=== PATIENT | male | born 1965 | race Caucasian/White ===

== ENCOUNTER → 2016-12-21 | Outpatient (CLI) | payer OTHER | LOC: M SLEEP 20:00 | PROVIDERS: ATTEND Internal Medicine Pulmonary Disease | DX: G47.33 Obstructive sleep apnea (adult) (pediatric) (principal) ==

== ENCOUNTER → 2016-12-27 | Outpatient (CLI) | payer OTHER ==
[2016-12-27 16:07] LABS: ALBUMIN 3.9 GM/DL (3.2-5.2); ALBUMIN/GLOBULIN RATIO 1.22 (1.00-1.93); ALKALINE PHOSPHATASE 81 U/L (45-117); ALT/SGPT 43 U/L (12-78); ANION GAP 7 MEQ/L (8-16); AST/SGOT 25 U/L (15-37); BILIRUBIN,TOTAL 0.6 MG/DL (0.2-1.0); BLOOD UREA NITROGEN 13 MG/DL (7-18); CALCIUM LEVEL 8.8 MG/DL (8.5-10.1); CARBON DIOXIDE LEVEL 29 MEQ/L (21-32); CHLORIDE LEVEL 104 MEQ/L (98-107); CHOLESTEROL LEVEL 171 MG/DL (<200); CREATININE FOR GFR 0.97 MG/DL (0.70-1.30); GLOMERULAR FILTRATION RATE > 60.0 (>56); GLUCOSE, FASTING 172 MG/DL (70-105); POTASSIUM SERUM 4.3 MEQ/L (3.5-5.1); SODIUM LEVEL 140 MEQ/L (136-145); TOTAL PROTEIN 7.1 GM/DL (6.4-8.2); TRIGLYCERIDES LEVEL 160 MG/DL (<150)
== END ==
LOC: M LAB 14:57
PROVIDERS: ATTEND Emergency Medicine
DX: R73.01 Impaired fasting glucose (principal); E55.9 Vitamin D deficiency, unspecified

== ENCOUNTER 2017-01-01 02:21 | Emergency (ER) | payer OTHER ==
[~2017-01-01] VITALS: Ht 170.2 cm; Wt 88.5 kg
[2017-01-01 02:24] VITALS: BP 153/98
[2017-01-01] MEDS ORDERED: AMPH5CAP PO (02:35)
[2017-01-01] MEDS ORDERED: VITA400T15 PO (02:35)
[2017-01-01] MEDS ORDERED: ZYRT10CA PO (02:35)
[2017-01-01] MEDS ORDERED: ALEV220C2 PO (02:35)
[2017-01-01] MEDS ORDERED: GABA-282 PO (02:35)
[2017-01-01] MEDS ORDERED: MULT1TAB18 PO (02:35)
[2017-01-01] MEDS ORDERED: METF500T PO (02:35)
== END 2017-01-01 04:54 | disposition left against medical advice (07) ==
LOC: M ED 03:43
DX: R68.89 Other general symptoms and signs (principal); Z53.29 Procedure and treatment not carried out because of patient's decision for other reasons

== ENCOUNTER 2017-06-02 06:52 | Emergency (ER) | payer OTHER ==
[~2017-06-02] VITALS: Ht 170.2 cm; Wt 81.8 kg
[~2017-06-02 06:52] MED LIST: ALEV220C2 PO; AMPH5CAP PO; GABA-282 PO; METF500T13 PO; MULT1TAB18 PO; VITA400T15 PO; ZYRT10CA PO
[2017-06-02] MEDS ORDERED: OXYC15TA76 PO (07:04)
[2017-06-02] MEDS ORDERED: MORPHINE 2 MG/ML 1ML SYRINGE IV ONE (07:30)
[2017-06-02] MEDS ORDERED: ONDANSETRON 4MG/2ML VIAL (J2405) IV ONE (07:30)
[2017-06-02] MEDS ORDERED: NS 1,000 ML IV ONE (07:30)
[2017-06-02 07:48] LABS: BASO % 0.5 % (0.0-1.0); EOS # 0.1 K/mm3 (0.0-0.50); EOS % 1.4 % (0.0-3.0); LARGE UNSTAINED CELL # 0.2 K/mm3 (0.0-0.4); LARGE UNSTAINED CELL % 1.7 % (0.0-4.0); LYMPH # 2.7 K/mm3 (1.5-4.5); MEAN CORPUSCULAR HEMOGLOBIN 30.3 pg (27.0-33.0); MEAN CORPUSCULAR HGB CONC 34.3 g/dl (32.0-36.5); MEAN CORPUSCULAR VOLUME 88.3 fl (80.0-96.0); MONO # 0.7 K/mm3 (0.0-0.8); MONO % 7.8 % (0.0-5.0); NEUTROPHILS # 5.6 K/mm3 (1.8-7.7); NEUTROPHILS % 60.6 % (36.0-66.0); PLATELET COUNT, AUTOMATED 211 k/mm3 (150-450); RED CELL DISTRIBUTION WIDTH 13.4 % (11.5-14.5); WHITE BLOOD COUNT 9.2 K/mm3 (4.0-10.0)
[2017-06-02 08:07] LABS: ALBUMIN 3.7 GM/DL (3.2-5.2); ALKALINE PHOSPHATASE 62 U/L (45-117); ALT/SGPT 33 U/L (12-78); ANION GAP 6 MEQ/L (8-16); AST/SGOT 35 U/L (15-37); BILIRUBIN,DIRECT 0.3 MG/DL (0.0-0.2); BILIRUBIN,TOTAL 1.4 MG/DL (0.2-1.0); BLOOD UREA NITROGEN 9 MG/DL (7-18); CALCIUM LEVEL 8.3 MG/DL (8.5-10.1); CARBON DIOXIDE LEVEL 31 MEQ/L (21-32); CHLORIDE LEVEL 102 MEQ/L (98-107); CREATININE FOR GFR 0.83 MG/DL (0.70-1.30); GLOMERULAR FILTRATION RATE > 60.0 (>56); GLUCOSE, FASTING 115 MG/DL (70-105); POTASSIUM SERUM 3.5 MEQ/L (3.5-5.1); SODIUM LEVEL 139 MEQ/L (136-145); TOTAL PROTEIN 7.8 GM/DL (6.4-8.2)
[2017-06-02] MEDS ORDERED: ISOVUE-370 76% 100ML VIAL (Q9967) As Ordered ONE (08:19)
--- NOTE | 2017-06-02 08:37 | REP ---
Clinical: S I R S . Comparison: 09/02/2016 . Findings: The mediastinum and cardiac silhouette are stable and within normal limits for portable technique. The lung wright are clear without acute consolidation, effusion, or pneumothorax. Skeletal structures are intact. Impression: No acute cardiopulmonary process appreciated. Signed by Roque Stuart MD 06/02/2017 08:29 A
--- NOTE | 2017-06-02 08:55 | REP ---
Clinical: Recent cervical spine surgery with difficulty swallowing. Technique: Axial contrast enhanced images from the the mid skull to the thoracic inlet with coronal and sagittal re-formations using 100 ml Isovue 370 intravenous contrast material. Findings: Moderate retropharyngeal/prespinal soft tissue swelling and fullness is appreciated extending from the C2-C4 level which may represent postoperative changes. No discrete abscess is identified. Parapharyngeal fat space demonstrates postoperative inflammatory changes and swelling along the left side of the neck to the C7-T1 level including small amounts of residual subcutaneous gas. The airway remains patent and midline. No mass or midline shift noted. The vascular structures are intact and symmetric. The osseous structures are within normal limits. Visualized sinuses and mastoid air cells are clear. Lymph nodes are relatively symmetric and without obvious adenopathy. Impression: Moderate presumed postoperative changes in the retropharyngeal and right parapharyngeal region extending from approximately C2-C5 as described above including prespinal soft tissue fullness without discrete abscess and subcutaneous/soft tissue infiltration along the left side extending to the level of the thoracic inlet at C7-T1. Signed by Roque Stuart MD 06/02/2017 08:47 A
[2017-06-02 10:35] VITALS: BP 149/86
== END 2017-06-02 10:48 | disposition short-term general hospital (02) ==
LOC: M ED 06:52
DX: R13.10 Dysphagia, unspecified (principal)
CPT/HCPCS: 36415; 70491; 71010; 80048; 80076; 81001; 83605; 85025; 87040; 87086; 93041; 94760; 96374; 96375; 99285; J2405; Q9967

== ENCOUNTER → 2017-11-28 | Outpatient (CLI) | payer OTHER ==
[2017-11-28 09:23] LABS: ESTIMATED AVERAGE GLUCOSE 123 MG/DL (60-110); HEMOGLOBIN A1c 5.9 %
[2017-11-28 09:37] LABS: ALBUMIN 4.2 GM/DL (3.2-5.2); ALBUMIN/GLOBULIN RATIO 1.31 (1.00-1.93); ALKALINE PHOSPHATASE 81 U/L (45-117); ALT/SGPT 28 U/L (12-78); ANION GAP 5 MEQ/L (8-16); AST/SGOT 17 U/L (7-37); BILIRUBIN,TOTAL 0.9 MG/DL (0.2-1.0); BLOOD UREA NITROGEN 13 MG/DL (7-18); CALCIUM LEVEL 9.1 MG/DL (8.5-10.1); CARBON DIOXIDE LEVEL 29 MEQ/L (21-32); CHLORIDE LEVEL 107 MEQ/L (98-107); CHOLESTEROL LEVEL 166 MG/DL (<200); CHOLESTEROL RISK RATIO 2.766 (<5); CREATININE FOR GFR 0.87 MG/DL (0.70-1.30); GLOMERULAR FILTRATION RATE > 60.0 (>56); GLUCOSE, FASTING 101 MG/DL (70-100); HDL CHOLESTEROL 60 MG/DL (>40); LDL CHOLESTEROL 84.8 MG/DL (<100); NON-HDL-C 106 MG/DL; POTASSIUM SERUM 4.2 MEQ/L (3.5-5.1); SODIUM LEVEL 141 MEQ/L (136-145); TOTAL PROTEIN 7.4 GM/DL (6.4-8.2); TRIGLYCERIDES LEVEL 106 MG/DL (<150)
[2017-11-28 09:57] LABS: TOTAL 25(OH) VITAMIN D 30.9 NG/ML (30.0-100.0)
== END ==
LOC: M LAB 08:38
DX: R73.01 Impaired fasting glucose (principal); E55.9 Vitamin D deficiency, unspecified
CPT/HCPCS: 80053

== ENCOUNTER 2017-12-18 11:50 | Emergency (ER) | payer OTHER ==
[2017-12-18] MEDS ORDERED: ISOVUE-370 76% 100ML VIAL (Q9967) As Ordered (14:11)
[2017-12-18] MEDS: LIDOCAINE VISCOUS 2% SOLN 15ML UDC PO (15:38)
== END 2017-12-18 16:51 | disposition home or self-care (01) ==
LOC: M ED 11:50
DX: R13.10 Dysphagia, unspecified (principal); E11.9 Type 2 diabetes mellitus without complications; Z98.890 Other specified postprocedural states; Z79.84 Long term (current) use of oral hypoglycemic drugs; Z79.899 Other long term (current) drug therapy
CPT/HCPCS: Q9967

== ENCOUNTER 2018-01-14 21:21 | Emergency (ER) | payer OTHER ==
[2018-01-14 22:26] LABS: BASO # 0.1 10^3/uL (0.0-0.2); BASO % 0.8 % (0.0-1.0); EOS # 0.2 10^3/uL (0.0-0.50); EOS % 2.5 % (0.0-3.0); HEMOGLOBIN 15.5 g/dl (13.5-17.5); IMMATURE GRANULOCYTE % 0.3 % (0-3.0); LYMPH % 28.4 % (24.0-44.0); MEAN CORPUSCULAR HGB CONC 34.4 g/dl (32.0-36.5); MEAN CORPUSCULAR VOLUME 84.3 fl (80.0-96.0); MONO # 0.7 10^3/uL (0.0-0.8); MONO % 10.1 % (0.0-5.0); NEUTROPHILS # 4.1 10^3/uL (1.8-7.7); NEUTROPHILS % 57.9 % (36.0-66.0); PLATELET COUNT, AUTOMATED 253 10^3/uL (150-450); RED BLOOD COUNT 5.34 10^6/uL (4.30-6.10); RED CELL DISTRIBUTION WIDTH 14.6 % (11.5-14.5); WHITE BLOOD COUNT 7.2 10^3/uL (4.0-10.0)
[2018-01-14 22:30] LABS: INR 1.12; PROTHROMBIN TIME 14.6 SECONDS (12.4-14.5)
[2018-01-14 22:31] LABS: PARTIAL THROMBOPLASTIN TIME 30.4 SECONDS (26.8-37.9)
[2018-01-14 22:33] LABS: ANION GAP 7 MEQ/L (8-16); BLOOD UREA NITROGEN 14 MG/DL (7-18); CALCIUM LEVEL 9.1 MG/DL (8.5-10.1); CARBON DIOXIDE LEVEL 27 MEQ/L (21-32); CHLORIDE LEVEL 106 MEQ/L (98-107); CK-MB VALUE MASS 1.2 NG/ML (<3.6); CPK CREATINE PHOSPHOKINASE 135 U/L (39-308); GLOMERULAR FILTRATION RATE > 60.0 (>56); GLUCOSE, FASTING 132 MG/DL (70-100); MB/CK RELATIVE INDEX 0.88 (< OR =4); POTASSIUM SERUM 3.9 MEQ/L (3.5-5.1); SODIUM LEVEL 140 MEQ/L (136-145); TROPONIN I < 0.02 NG/ML (< 0.10)
[2018-01-14] MEDS: ASPIRIN 325 MG TAB PO (22:48)
[2018-01-14] MEDS ORDERED: ISOVUE-370 76% 100ML VIAL (Q9967) As Ordered (23:33)
[2018-01-15 01:52] LABS: CK-MB VALUE MASS 1.1 NG/ML (<3.6); CPK CREATINE PHOSPHOKINASE 113 U/L (39-308); MB/CK RELATIVE INDEX 0.97 (< OR =4); TROPONIN I < 0.02 NG/ML (< 0.10)
[2018-01-15] MEDS: GI COCKTAIL 50ML BTL(HYOSCYAMINE/MAALOX/LIDOCAINE VISCOUS)(1:3:1) PO (02:27)
== END 2018-01-15 02:28 | disposition home or self-care (01) ==
LOC: M ED 01-15 02:28
DX: M96.1 Postlaminectomy syndrome, not elsewhere classified (principal); R07.0 Pain in throat; I45.19 Other right bundle-branch block; E11.9 Type 2 diabetes mellitus without complications; G89.29 Other chronic pain; M54.2 Cervicalgia; Z79.899 Other long term (current) drug therapy
CPT/HCPCS: Q9967

== ENCOUNTER 2018-07-18 12:56 | Emergency (ER) | payer OTHER ==
[2018-07-18 13:30] LABS: BEDSIDE GLUCOSE 101 MG/DL (70-105)
[2018-07-18 13:51] LABS: BASO # 0.1 10^3/uL (0.0-0.2); BASO % 0.8 % (0.0-1.0); EOS # 0.2 10^3/uL (0.0-0.50); EOS % 3.2 % (0.0-3.0); HEMATOCRIT 38.7 % (42.0-52.0); IMMATURE GRANULOCYTE % 0.2 % (0-3.0); LYMPH # 1.8 10^3/uL (1.5-4.5); LYMPH % 30.7 % (24.0-44.0); MEAN CORPUSCULAR HEMOGLOBIN 25.4 pg (27.0-33.0); MONO # 0.6 10^3/uL (0.0-0.8); MONO % 10.7 % (0.0-5.0); NEUTROPHILS # 3.3 10^3/uL (1.8-7.7); NEUTROPHILS % 54.4 % (36.0-66.0); PLATELET COUNT, AUTOMATED 313 10^3/uL (150-450); RED BLOOD COUNT 4.72 10^6/uL (4.30-6.10); RED CELL DISTRIBUTION WIDTH 14.9 % (11.5-14.5)
[2018-07-18 14:23] LABS: ALBUMIN 3.7 GM/DL (3.2-5.2); ALBUMIN/GLOBULIN RATIO 1.06 (1.00-1.93); ALKALINE PHOSPHATASE 86 U/L (45-117); ALT/SGPT 22 U/L (12-78); ANION GAP 8 MEQ/L (8-16); AST/SGOT 21 U/L (7-37); BILIRUBIN,DIRECT 0.2 MG/DL (0.0-0.2); BILIRUBIN,TOTAL 0.7 MG/DL (0.2-1.0); BLOOD UREA NITROGEN 14 MG/DL (7-18); CALCIUM LEVEL 8.8 MG/DL (8.5-10.1); CARBON DIOXIDE LEVEL 29 MEQ/L (21-32); CHLORIDE LEVEL 107 MEQ/L (98-107); CK-MB VALUE MASS < 1.0 NG/ML (<3.6); CPK CREATINE PHOSPHOKINASE 103 U/L (39-308); CREATININE FOR GFR 0.85 MG/DL (0.70-1.30); FREE T4 1.27 NG/DL (0.76-1.46); GLOMERULAR FILTRATION RATE > 60.0 (>56); GLUCOSE, FASTING 92 MG/DL (70-100); MB/CK RELATIVE INDEX 0.97 (< OR =4); SODIUM LEVEL 144 MEQ/L (136-145); THYROID STIMULATING HORMONE 0.737 uIU/ML (0.358-3.740); TOTAL PROTEIN 7.2 GM/DL (6.4-8.2); TROPONIN I < 0.02 NG/ML (< 0.10)
[2018-07-18] MEDS: NS 1,000 ML IV (14:41)
[2018-07-18] MEDS ORDERED: ISOVUE-370 76% 100ML VIAL (Q9967) As Ordered (14:55)
[2018-07-18 20:25] LABS: CK-MB VALUE MASS < 1.0 NG/ML (<3.6); CPK CREATINE PHOSPHOKINASE 78 U/L (39-308); MB/CK RELATIVE INDEX 1.28 (< OR =4); TROPONIN I < 0.02 NG/ML (< 0.10)
== END 2018-07-18 21:08 | disposition home or self-care (01) ==
LOC: M ED 12:56
DX: R00.2 Palpitations (principal); R07.89 Other chest pain; M54.12 Radiculopathy, cervical region; R20.2 Paresthesia of skin; I45.19 Other right bundle-branch block; E11.9 Type 2 diabetes mellitus without complications; G47.30 Sleep apnea, unspecified; M48.02 Spinal stenosis, cervical region; Z72.0 Tobacco use; Z79.899 Other long term (current) drug therapy
CPT/HCPCS: Q9967

== ENCOUNTER 2018-07-20 12:52 | Emergency (ER) | payer OTHER ==
[2018-07-20] MEDS: ASPIRIN 81 MG CHEW TABLET PO (13:30)
[2018-07-20 13:35] LABS: BASO # 0.1 10^3/uL (0.0-0.2); BASO % 0.8 % (0.0-1.0); EOS # 0.2 10^3/uL (0.0-0.50); EOS % 2.5 % (0.0-3.0); HEMATOCRIT 38.5 % (42.0-52.0); HEMOGLOBIN 12.2 g/dl (13.5-17.5); IMMATURE GRANULOCYTE % 0.3 % (0-3.0); LYMPH # 1.8 10^3/uL (1.5-4.5); LYMPH % 28.3 % (24.0-44.0); MEAN CORPUSCULAR HEMOGLOBIN 25.5 pg (27.0-33.0); MEAN CORPUSCULAR HGB CONC 31.7 g/dl (32.0-36.5); MEAN CORPUSCULAR VOLUME 80.4 fl (80.0-96.0); MONO # 0.5 10^3/uL (0.0-0.8); MONO % 8.1 % (0.0-5.0); NEUTROPHILS # 3.8 10^3/uL (1.8-7.7); PLATELET COUNT, AUTOMATED 329 10^3/uL (150-450); RED BLOOD COUNT 4.79 10^6/uL (4.30-6.10); RED CELL DISTRIBUTION WIDTH 14.7 % (11.5-14.5); WHITE BLOOD COUNT 6.4 10^3/uL (4.0-10.0)
[2018-07-20 13:50] LABS: PROTHROMBIN TIME 15.4 SECONDS (12.1-14.4)
[2018-07-20 13:51] LABS: PARTIAL THROMBOPLASTIN TIME 29.5 SECONDS (25.4-37.6)
[2018-07-20] MEDS: NITROGLYCERIN 2% OINT 1 GM *U/D* PKT TOP (14:00)
[2018-07-20 14:09] LABS: ALBUMIN 3.7 GM/DL (3.2-5.2); ALBUMIN/GLOBULIN RATIO 0.97 (1.00-1.93); ALKALINE PHOSPHATASE 87 U/L (45-117); ALT/SGPT 23 U/L (12-78); ANION GAP 8 MEQ/L (8-16); AST/SGOT 20 U/L (7-37); BILIRUBIN,DIRECT 0.2 MG/DL (0.0-0.2); BILIRUBIN,TOTAL 0.7 MG/DL (0.2-1.0); BLOOD UREA NITROGEN 14 MG/DL (7-18); CALCIUM LEVEL 8.9 MG/DL (8.5-10.1); CARBON DIOXIDE LEVEL 28 MEQ/L (21-32); CHLORIDE LEVEL 106 MEQ/L (98-107); CREATININE FOR GFR 0.94 MG/DL (0.70-1.30); GLOMERULAR FILTRATION RATE > 60.0 (>56); GLUCOSE, FASTING 112 MG/DL (70-100); POTASSIUM SERUM 3.8 MEQ/L (3.5-5.1); SODIUM LEVEL 142 MEQ/L (136-145); TOTAL PROTEIN 7.5 GM/DL (6.4-8.2)
[2018-07-20 14:10] LABS: CPK CREATINE PHOSPHOKINASE 107 U/L (39-308); FREE T4 1.15 NG/DL (0.76-1.46); MB/CK RELATIVE INDEX 0.93 (< OR =4); THYROID STIMULATING HORMONE 0.923 uIU/ML (0.358-3.740); TROPONIN I < 0.02 NG/ML (< 0.10)
[2018-07-20 18:40] LABS: CK-MB VALUE MASS < 1.0 NG/ML (<3.6); CPK CREATINE PHOSPHOKINASE 97 U/L (39-308); MB/CK RELATIVE INDEX 1.03 (< OR =4); TROPONIN I < 0.02 NG/ML (< 0.10)
== END 2018-07-20 19:33 | disposition home or self-care (01) ==
LOC: M ED 12:52
DX: R07.89 Other chest pain (principal); R00.1 Bradycardia, unspecified; R11.0 Nausea; E11.9 Type 2 diabetes mellitus without complications; F17.200 Nicotine dependence, unspecified, uncomplicated; Z79.899 Other long term (current) drug therapy; Z79.84 Long term (current) use of oral hypoglycemic drugs
CPT/HCPCS: 71046

== ENCOUNTER 2018-12-12 11:43 | Emergency (ER) | payer OTHER ==
[~2018-12-12] VITALS: Ht 170.2 cm; Wt 79.5 kg
[~2018-12-12 11:43] MED LIST changes: +AMPHET/DEXTR; +CENTCHW4 PO; -GABA-282 PO; +GABA-843 PO; +OXYC15TA76 PO
[2018-12-12] MEDS ORDERED: AMPHET/DEXTR (11:49)
[2018-12-12] MEDS ORDERED: KETOROLAC TROMETHAMINE 10 MG TAB PO ONE (12:30)
[2018-12-12] MEDS ORDERED: ADACEL/BOOSTRIX VACCINE (DIPHTH/PERTUSS/ACELL/TETANUS)0.5ML SYR (90715) IM ONE (12:30)
--- NOTE | 2018-12-12 12:56 | REP ---
CT Head without contrast HISTORY: Fall COMPARISON: None There is no intraparenchymal hemorrhage, acute infarct, mass or midline shift. The ventricular system is normal in appearance. There is no extra cerebral collection. There is no fracture. The visualized sinuses are clear. IMPRESSION: There is no intracranial lesion. Electronically Signed by Chino Yanez MD 12/12/2018 12:47 P
--- NOTE | 2018-12-12 13:01 | REP ---
CT cervical spine without contrast HISTORY: Fall COMPARISON: 09/26/2011 There is no acute fracture or subluxation. The patient is status post C3-C6 anterior spinal fusion. Metal hardware and bone graft material are present. Disc bulges with associated osteophyte formation are present at the C2-3 and C6-7 levels. Posterior osteophytes are present at the C3-4 through C5-6 levels. There is minimal narrowing of the spinal canal. Uncinate process and/or facet hypertrophy are present at the C2-3 through C6-7 levels. These findings produce minimal to mild narrowing of the neural foramina. The C6-7 intervertebral disc is decreased in height consistent with disc degeneration. IMPRESSION: 1. There is no acute fracture or subluxation. 2. The patient is status post C3-C6 anterior spinal fusion. There is anatomic alignment. 3. There is cervical spondylosis at the C2-3 through C6-7 levels. Electronically Signed by Chino Yanez MD 12/12/2018 12:52 P
[2018-12-12] MEDS ORDERED: CYCL10TA PO (13:17)
[2018-12-12] MEDS ORDERED: KETO10TAB PO (13:17)
[2018-12-12 13:23] VITALS: BP 142/66
== END 2018-12-12 13:30 | disposition home or self-care (01) ==
LOC: M ED 11:43
DX: S00.81XA Abrasion of other part of head, initial encounter (principal); W10.8XXA Fall (on) (from) other stairs and steps, initial encounter; Y92.018 Other place in single-family (private) house as the place of occurrence of the external cause; Y93.01 Activity, walking, marching and hiking; Y99.8 Other external cause status; E11.9 Type 2 diabetes mellitus without complications; Z87.891 Personal history of nicotine dependence; M54.2 Cervicalgia; Z79.899 Other long term (current) drug therapy; Z79.84 Long term (current) use of oral hypoglycemic drugs

== ENCOUNTER → 2019-03-17 | Outpatient (CLI) | payer OTHER ==
[~2019-03-17] MED LIST changes: +CYCL10TA PO; +KETO10TAB PO
[2019-03-17 10:03] LABS: ALBUMIN 3.7 GM/DL (3.2-5.2); ALT/SGPT 26 U/L (12-78); BILIRUBIN,TOTAL 0.7 MG/DL (0.2-1.0); BLOOD UREA NITROGEN 12 MG/DL (7-18); CALCIUM LEVEL 8.9 MG/DL (8.5-10.1); CARBON DIOXIDE LEVEL 30 MEQ/L (21-32); CHLORIDE LEVEL 107 MEQ/L (98-107); CHOLESTEROL LEVEL 163 MG/DL (<200); CREATININE FOR GFR 0.99 MG/DL (0.70-1.30); GLOMERULAR FILTRATION RATE > 60.0 (>56); GLUCOSE, FASTING 95 MG/DL (70-100); HDL CHOLESTEROL 50 MG/DL (>40); LDL CHOLESTEROL 85 MG/DL (<100); NON-HDL-C 113 MG/DL; POTASSIUM SERUM 4.3 MEQ/L (3.5-5.1); SODIUM LEVEL 140 MEQ/L (136-145); TOTAL PROTEIN 7.3 GM/DL (6.4-8.2); TRIGLYCERIDES LEVEL 138 MG/DL (<150)
== END ==
LOC: M LAB 08:32
PROVIDERS: ATTEND Physician Assistant
DX: R73.01 Impaired fasting glucose (principal)

== ENCOUNTER → 2019-10-05 | Outpatient (CLI) | payer OTHER ==
[~2019-10-05] MED LIST changes: +AMPH1CAP9 PO; -AMPH5CAP PO
[2019-10-05 08:43] LABS: BASO # 0.1 10^3/uL (0.0-0.2); BASO % 0.9 % (0.0-1.0); EOS # 0.2 10^3/uL (0.0-0.5); EOS % 3.6 % (0.0-3.0); HEMATOCRIT 44.9 % (42.0-52.0); HEMOGLOBIN 14.5 g/dl (13.5-17.5); LYMPH # 1.8 10^3/uL (1.5-5.0); LYMPH % 32.1 % (24.0-44.0); MEAN CORPUSCULAR HEMOGLOBIN 28.8 pg (27.0-33.0); MEAN CORPUSCULAR HGB CONC 32.3 g/dl (32.0-36.5); MEAN CORPUSCULAR VOLUME 89.3 fl (80.0-96.0); MONO # 0.6 10^3/uL (0.0-0.8); MONO % 10.3 % (0.0-5.0); NEUTROPHILS # 2.9 10^3/uL (1.5-8.5); NEUTROPHILS % 52.6 % (36.0-66.0); PLATELET COUNT, AUTOMATED 219 10^3/uL (150-450); RED BLOOD COUNT 5.03 10^6/uL (4.30-6.10); WHITE BLOOD COUNT 5.6 10^3/uL (4.0-10.0)
[2019-10-05 09:02] LABS: HEMOGLOBIN A1c 6.4 %
[2019-10-05 11:14] LABS: ALBUMIN 3.5 GM/DL (3.2-5.2); ALT/SGPT 35 U/L (12-78); BILIRUBIN,TOTAL 0.9 MG/DL (0.2-1.0); BLOOD UREA NITROGEN 13 MG/DL (7-18); CALCIUM LEVEL 8.9 MG/DL (8.5-10.1); CARBON DIOXIDE LEVEL 27 MEQ/L (21-32); CHLORIDE LEVEL 106 MEQ/L (98-107); CHOLESTEROL LEVEL 160 MG/DL (<200); CHOLESTEROL RISK RATIO 3.555 (<5); CREATININE FOR GFR 0.84 MG/DL (0.70-1.30); GLOMERULAR FILTRATION RATE > 60.0 (>56); GLUCOSE, FASTING 108 MG/DL (70-100); HDL CHOLESTEROL 45 MG/DL (>40); LDL CHOLESTEROL 79 MG/DL (<100); NON-HDL-C 115 MG/DL; POTASSIUM SERUM 4.2 MEQ/L (3.5-5.1); SODIUM LEVEL 142 MEQ/L (136-145); TOTAL PROTEIN 6.9 GM/DL (6.4-8.2); TRIGLYCERIDES LEVEL 182 MG/DL (<150)
[2019-10-05 11:31] LABS: MALB URINE SIEMENS 12.3 MG/L
[2019-10-05 11:52] LABS: TOTAL 25(OH) VITAMIN D 22.1 NG/ML (30.0-100.0)
[2019-10-05 15:26] LABS: MAU/CREAT RATIO 7.1 MCG/MG (0.0-30.0)
== END ==
LOC: M LAB 07:54
PROVIDERS: ATTEND Physician Assistant
DX: R73.01 Impaired fasting glucose (principal); E55.9 Vitamin D deficiency, unspecified; G47.33 Obstructive sleep apnea (adult) (pediatric)

== ENCOUNTER 2020-01-14 17:53 | Emergency (ER) | payer OTHER ==
[~2020-01-14] VITALS: Ht 172.7 cm; Wt 81.8 kg
[~2020-01-14 17:53] MED LIST changes: +CYCL-707 PO; -CYCL10TA PO; +OXYC-1 PO; -OXYC15TA76 PO
[2020-01-14] MEDS ORDERED: ONDANSETRON 4MG/2ML VIAL IV ONE (18:15)
[2020-01-14 18:30] LABS: BASO % 0.5 % (0.0-1.0); EOS # 0.1 10^3/uL (0.0-0.5); EOS % 1.1 % (0.0-3.0); HEMATOCRIT 44.3 % (42.0-52.0); HEMOGLOBIN 15.1 g/dl (13.5-17.5); LYMPH # 1.1 10^3/uL (1.5-5.0); LYMPH % 13.7 % (24.0-44.0); MEAN CORPUSCULAR HEMOGLOBIN 30.5 pg (27.0-33.0); MEAN CORPUSCULAR HGB CONC 34.1 g/dl (32.0-36.5); MEAN CORPUSCULAR VOLUME 89.5 fl (80.0-96.0); MONO # 0.5 10^3/uL (0.0-0.8); MONO % 5.9 % (0.0-5.0); NEUTROPHILS # 6.5 10^3/uL (1.5-8.5); NEUTROPHILS % 78.3 % (36.0-66.0); PLATELET COUNT, AUTOMATED 226 10^3/uL (150-450); RED BLOOD COUNT 4.95 10^6/uL (4.30-6.10); WHITE BLOOD COUNT 8.3 10^3/uL (4.0-10.0)
[2020-01-14] MEDS ORDERED: MORPHINE 4 MG/ML 1ML VIAL/SYRINGE (J2270) IV ONE (18:30)
[2020-01-14 18:44] LABS: INR 1.14; PROTHROMBIN TIME 14.4 SECONDS (11.8-14.0)
[2020-01-14 18:45] LABS: PARTIAL THROMBOPLASTIN TIME 29.7 SECONDS (25.0-38.4)
[2020-01-14] MEDS ORDERED: GI COCKTAIL 50ML BTL(HYOSCYAMINE/MAALOX/LIDOCAINE VISCOUS)(1:3:1) PO ONE (18:45)
[2020-01-14] MEDS ORDERED: NITROGLYCERIN 0.4 MG SUBL TABLET SL PRN (18:45)
[2020-01-14 18:48] LABS: BLOOD UREA NITROGEN 10 MG/DL (7-18); C REACTIVE PROTEIN QUANTITATIV < 0.30 MG/DL (0.00-0.30); CALCIUM LEVEL 9.1 MG/DL (8.5-10.1); CARBON DIOXIDE LEVEL 30 MEQ/L (21-32); CHLORIDE LEVEL 105 MEQ/L (98-107); CK-MB VALUE MASS 3.7 NG/ML (<3.6); CPK CREATINE PHOSPHOKINASE 104 U/L (39-308); CREATININE FOR GFR 0.86 MG/DL (0.70-1.30); GLOMERULAR FILTRATION RATE > 60.0 (>56); GLUCOSE, FASTING 183 MG/DL (70-100); MB/CK RELATIVE INDEX 3.56 (< OR =4); POTASSIUM SERUM 4.1 MEQ/L (3.5-5.1); SODIUM LEVEL 139 MEQ/L (136-145); TROPONIN I 0.37 NG/ML (< 0.10)
[2020-01-14 18:53] LABS: ERYTHROCYTE SEDIMENTATION RATE 4 mm/hr (0-20)
[2020-01-14] MEDS ORDERED: PANT500T PO (18:57)
[2020-01-14] MEDS ORDERED: OMEP-218 PO (18:57)
[2020-01-14] MEDS ORDERED: ISOVUE-370 76% 100ML VIAL As Ordered ONE (18:59)
--- NOTE | 2020-01-14 19:25 | REPVR ---
PROCEDURE INFORMATION: Exam: CT Angiography Chest With Contrast Exam date and time: 01/14/2020 7:02 PM Age: 54 years old Clinical indication: Sternal or substernal pain; Additional info: Sternal sharp chest pain constant, SOB TECHNIQUE: Imaging protocol: Computed tomographic angiography of the chest with intravenous contrast. 3D rendering: MIP and/or 3D reconstructed images were created by the technologist. Radiation optimization: All CT scans at this facility use at least one of these dose optimization techniques: automated exposure control; mA and/or kV adjustment per patient size (includes targeted exams where dose is matched to clinical indication); or iterative reconstruction. Contrast material: ISOVUE 370; Contrast volume: 75 ml; Contrast route: IV; COMPARISON: CT ANGIO CHEST 07/18/2018 2:54 PM FINDINGS: Pulmonary arteries: No pulmonary arterial emboli. Aorta: No thoracic aortic aneurysm or dissection. Lungs: There is minor dependent atelectasis. No consolidation. No focal ground-glass opacities. No nodule or mass. Pleural space: Unremarkable. No pneumothorax. No pleural effusion. Heart: There are coronary artery calcifications. Lymph nodes: Unremarkable. No enlarged lymph nodes. Bones/joints: There are degenerative changes of the thoracic spine. No fracture. No focal osseous lesion. Soft tissues: Unremarkable. IMPRESSION: 1. No pulmonary arterial emboli. 2. No acute findings. Electronically signed by: Khoa Hernandez On 01/14/2020 19:25:19 PM
[2020-01-14] MEDS ORDERED: HEPARIN DRIP 25,000 UNITS in IV 1 EA IV SCH (19:29)
[2020-01-14] MEDS ORDERED: HEPARIN SOD (PORCINE) 5000UNITS/ML VIAL (J1644 PER 1000UNITS) IV ONE (19:30)
[2020-01-14] MEDS ORDERED: METOPROLOL TART 50 MG TAB PO ONE (19:30)
[2020-01-14] MEDS ORDERED: MORPHINE 4 MG/ML 1ML VIAL/SYRINGE (J2270) IV PRN (19:30)
[2020-01-14] MEDS ORDERED: CLOPIDOGREL 300 MG TAB (PLAVIX) PO ONE (20:00)
[2020-01-14 20:11] VITALS: BP 177/78
[2020-01-14 20:30] VITALS: BP 139/63
[2020-01-14 21:41] LABS: CK-MB VALUE MASS 7.6 NG/ML (<3.6); MB/CK RELATIVE INDEX 5.85 (< OR =4); TROPONIN I 0.99 NG/ML (< 0.10)
--- NOTE | 2020-01-15 00:58 | ECGEPIP ---
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
--- NOTE | 2020-01-15 08:19 | REP ---
HISTORY: Chest pain. The technique utilized in obtaining the radiograph has magnified the cardiac silhouette and accentuated the interstitial markings. The superior mediastinal structures are midline. The cardiac silhouette is unremarkable in size, shape, and position. The diaphragmatic surfaces of the lungs are regular, and the costophrenic angles are clear. The pulmonary wright are clear. The imaged osseous structures are intact. IMPRESSION: There is no acute cardiopulmonary disease. Electronically Signed by Vance White DO 01/17/2020 07:48 A
== END 2020-01-14 21:02 | disposition short-term general hospital (02) ==
LOC: EDBD 17:53 → M ED 17:53
DX: I21.4 Non-ST elevation (NSTEMI) myocardial infarction (principal); E11.9 Type 2 diabetes mellitus without complications; Z79.84 Long term (current) use of oral hypoglycemic drugs
CPT/HCPCS: 71045; 71275; 80048; 82550; 82553; 84484; 85025; 85610; 85652; 85730; 86140; 93005; 93041; 94760; 96374; 96375; 96376; 99285; G0463; J1644; J2270; J2405; Q9967

== ENCOUNTER 2020-01-27 16:39 | Emergency (ER) | payer OTHER ==
[~2020-01-27] VITALS: Ht 172.7 cm; Wt 87.4 kg
[~2020-01-27 16:39] MED LIST changes: +OMEP-218 PO; +PANT500T PO
[2020-01-27] MEDS ORDERED: FERR325T16 PO (16:55)
[2020-01-27] MEDS ORDERED: NORC1TAB7 PO (16:55)
[2020-01-27] MEDS ORDERED: POTA10CA32 PO (16:55)
[2020-01-27] MEDS ORDERED: METF500T13 PO (16:55)
[2020-01-27] MEDS ORDERED: AMLO25TA PO (16:55)
[2020-01-27] MEDS ORDERED: PLAV1TAB2 PO (16:55)
[2020-01-27] MEDS ORDERED: METO1TAB32 PO (16:55)
[2020-01-27] MEDS ORDERED: ASPI81TA26 PO (16:55)
[2020-01-27] MEDS ORDERED: ATOR80TA59 PO (16:55)
[2020-01-27] MEDS ORDERED: FURO20TA2 PO (16:55)
[2020-01-27] MEDS ORDERED: MM S100C PO (16:55)
[2020-01-27 17:52] LABS: HEMATOCRIT 30.6 % (42.0-52.0); MEAN CORPUSCULAR HEMOGLOBIN 30.4 pg (27.0-33.0); MEAN CORPUSCULAR HGB CONC 32.7 g/dl (32.0-36.5); PLATELET COUNT, AUTOMATED 403 10^3/uL (150-450); RED BLOOD COUNT 3.29 10^6/uL (4.30-6.10); WHITE BLOOD COUNT 9.8 10^3/uL (4.0-10.0)
[2020-01-27 18:06] LABS: INR 1.34; PROTHROMBIN TIME 16.3 SECONDS (11.8-14.0)
[2020-01-27 18:07] LABS: PARTIAL THROMBOPLASTIN TIME 30.9 SECONDS (25.0-38.4)
[2020-01-27 18:18] LABS: ALBUMIN 3.3 GM/DL (3.2-5.2); BILIRUBIN,DIRECT 0.4 MG/DL (0.0-0.2); BILIRUBIN,TOTAL 1.1 MG/DL (0.2-1.0); THYROID STIMULATING HORMONE 0.98 uIU/ML (0.358-3.740); TOTAL PROTEIN 6.6 GM/DL (6.4-8.2)
[2020-01-27] MEDS ORDERED: ISOVUE-370 76% 100ML VIAL As Ordered ONE (18:29)
[2020-01-27] MEDS ORDERED: FUROSEMIDE 40MG/4ML VIAL (J1940) IV ONE (19:30)
[2020-01-27] MEDS ORDERED: KETOROLAC 30 MG/ML 1ML VIAL IV ONE (19:45)
--- NOTE | 2020-01-27 20:02 | REPVR ---
PROCEDURE INFORMATION: Exam: CT Angiography Chest With Contrast Exam date and time: 01/27/2020 6:44 PM Age: 54 years old Clinical indication: Chest pain; Additional info: Chest pain, post op TECHNIQUE: Imaging protocol: Computed tomographic angiography of the chest with intravenous contrast. 3D rendering: MIP and/or 3D reconstructed images were created by the technologist. Radiation optimization: All CT scans at this facility use at least one of these dose optimization techniques: automated exposure control; mA and/or kV adjustment per patient size (includes targeted exams where dose is matched to clinical indication); or iterative reconstruction. Contrast material: ISOVUE 370; Contrast volume: 75 ml; Contrast route: IV; COMPARISON: CT ANGIO CHEST 01/14/2020 7:03 PM FINDINGS: Pulmonary arteries: No evidence of pulmonary embolus. Aorta: There is mild irregularity along the anterior aspect of the proximal aortic arch. Lungs: Mild scattered linear atelectasis or scarring. No consolidation to indicate pneumonia. Pleural space: Small to moderate bilateral pleural effusions with adjacent compressive atelectasis. Heart: Previous coronary artery bypass grafting. Mediastinum: There are soft tissue infiltrative changes involving the anterior mediastinum. Lymph nodes: Unremarkable. No enlarged lymph nodes. Bones/joints: Recent median sternotomy. There are degenerative changes involving the spine. Minimally displaced fracture involving the right 1st rib. Soft tissues: Unremarkable. IMPRESSION: 1. Mild irregularity along the anterior aspect of the proximal aortic arch, new from prior examination. Finding may be secondary to small amount of mural thrombus or intimal injury, follow-up recommended. 2. Minimally displaced fracture involving the right 1st rib. 3. Small to moderate bilateral pleural effusions with adjacent compressive atelectasis. 4. Infiltrative changes involving the anterior mediastinal fat planes, at least in part on a postoperative basis. 5. No evidence of pulmonary embolus. 6. Additional findings as above. Electronically signed by: Ochoa Chacko On 01/27/2020 20:02:14 PM
[2020-01-27 20:45] VITALS: BP 132/77
[2020-01-27] MEDS ORDERED: KETOROLAC TROMETHAMINE 10 MG TAB PO SCH (20:45)
[2020-01-27] MEDS ORDERED: OXYCODONE/APAP 5MG/325MG(BULK FOR ED) 1 TABLET PO ONE (20:45)
--- NOTE | 2020-01-27 23:07 | REP ---
CHEST, PORTABLE: AP portable view of the chest is performed and compared to prior study of 01/14/2020. There is cardiomegaly. Left basilar infiltrate is noted. There are small bilateral effusions. There are multiple sternal wires and mediastinal clips present. Metallic fixation is seen in the cervical spine. IMPRESSION: Cardiomegaly. Left basilar infiltrate and small effusions. Electronically Signed by Adan Rahman MD 01/28/2020 09:31 A
--- NOTE | 2020-01-28 02:00 | ECGEPIP ---
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
--- NOTE | 2020-01-29 17:08 | ED PDOC ---
Post-Departure Follow-Up sathya vides faxed formal report of cxr/cta chest for fu Janel Posadas MD January 29, 2020 17:08
== END 2020-01-27 21:20 | disposition home or self-care (01) ==
LOC: M ED 16:39
DX: R07.9 Chest pain, unspecified (principal); J90 Pleural effusion, not elsewhere classified; I51.7 Cardiomegaly; Z98.890 Other specified postprocedural states; I25.10 Atherosclerotic heart disease of native coronary artery without angina pectoris; Z95.1 Presence of aortocoronary bypass graft; E11.9 Type 2 diabetes mellitus without complications; G47.33 Obstructive sleep apnea (adult) (pediatric); M48.02 Spinal stenosis, cervical region; Z82.49 Family history of ischemic heart disease and other diseases of the circulatory system; Z79.899 Other long term (current) drug therapy; Z79.82 Long term (current) use of aspirin; Z79.02 Long term (current) use of antithrombotics/antiplatelets; Z79.84 Long term (current) use of oral hypoglycemic drugs
CPT/HCPCS: 71045; 71275; 80047; 80076; 83880; 84443; 84484; 85027; 85610; 85730; 87040; 93005; 93041; 94760; 96374; 96375; 99285; J1885; J1940; Q9967

== ENCOUNTER → 2020-02-03 | Outpatient (CLI) | payer OTHER ==
[~2020-02-03] MED LIST changes: +AMLO25TA PO; +ASPI81TA26 PO; +ATOR80TA59 PO; +FERR325T16 PO; +FURO20TA2 PO; +METO1TAB32 PO; +MM S100C PO; +NORC1TAB7 PO; +PLAV1TAB2 PO; +POTA10CA32 PO
[2020-02-03 14:03] LABS: BLOOD UREA NITROGEN 14 MG/DL (7-18); CARBON DIOXIDE LEVEL 27 MEQ/L (21-32); CHLORIDE LEVEL 105 MEQ/L (98-107); CREATININE FOR GFR 0.88 MG/DL (0.70-1.30); GLOMERULAR FILTRATION RATE > 60.0 (>56); GLUCOSE, FASTING 121 MG/DL (70-100); POTASSIUM SERUM 4.2 MEQ/L (3.5-5.1); SODIUM LEVEL 137 MEQ/L (136-145)
[2020-02-03 16:11] LABS: HEMOGLOBIN A1c 6.4 %
== END ==
LOC: M LAB 13:06
PROVIDERS: ATTEND Family Medicine
DX: R73.01 Impaired fasting glucose (principal)

== ENCOUNTER → 2020-02-08 | Outpatient (CLI) | payer OTHER ==
--- NOTE | 2020-02-09 10:09 | REP ---
ULTRASOUND CHEST: Real-time sonographic evaluation of both hemithoraces performed to evaluate for pleural effusion. Comparison is made with CT angiogram of the chest 01/27/2020, which showed bilateral pleural effusions. On the right, a very tiny pleural effusion is present in the posterior costophrenic sulcus. On the left, there is mild to moderate pleural fluid with adjacent left lower lobe consolidation. Electronically Signed by Adan Rahman MD 02/09/2020 12:45 P
== END ==
LOC: M RAD 13:55
PROVIDERS: ATTEND Nurse Practitioner
DX: J90 Pleural effusion, not elsewhere classified (principal)

== ENCOUNTER → 2020-02-14 | Outpatient (CLI) | payer OTHER ==
[2020-02-14 12:30] LABS: HEMOGLOBIN 12.3 g/dl (13.5-17.5); MEAN CORPUSCULAR HGB CONC 32.4 g/dl (32.0-36.5); MEAN CORPUSCULAR VOLUME 92.7 fl (80.0-96.0); PLATELET COUNT, AUTOMATED 318 10^3/uL (150-450); WHITE BLOOD COUNT 6.9 10^3/uL (4.0-10.0)
[2020-02-14 12:56] LABS: BLOOD UREA NITROGEN 11 MG/DL (7-18); CALCIUM LEVEL 8.8 MG/DL (8.5-10.1); CARBON DIOXIDE LEVEL 28 MEQ/L (21-32); CHLORIDE LEVEL 106 MEQ/L (98-107); CREATININE FOR GFR 0.76 MG/DL (0.70-1.30); GLOMERULAR FILTRATION RATE > 60.0 (>56); GLUCOSE, FASTING 137 MG/DL (70-100); POTASSIUM SERUM 4.1 MEQ/L (3.5-5.1); SODIUM LEVEL 141 MEQ/L (136-145)
== END ==
LOC: M LAB 11:47
PROVIDERS: ATTEND Family Medicine
DX: I25.10 Atherosclerotic heart disease of native coronary artery without angina pectoris (principal)

== ENCOUNTER → 2020-04-25 | Outpatient (CLI) | payer OTHER ==
[2020-05-22 19:34] LABS: BASO # 0.1 10^3/uL (0.0-0.2); BASO % 0.9 % (0.0-1.0); EOS # 0.2 10^3/uL (0.0-0.5); EOS % 2.3 % (0.0-3.0); HEMATOCRIT 44.7 % (42.0-52.0); HEMOGLOBIN 14.5 g/dl (13.5-17.5); LYMPH # 1.7 10^3/uL (1.5-5.0); LYMPH % 25.8 % (24.0-44.0); MEAN CORPUSCULAR HEMOGLOBIN 28.9 pg (27.0-33.0); MEAN CORPUSCULAR HGB CONC 32.4 g/dl (32.0-36.5); MEAN CORPUSCULAR VOLUME 89.2 fl (80.0-96.0); MONO # 0.7 10^3/uL (0.0-0.8); MONO % 10.2 % (0.0-5.0); NEUTROPHILS % 60.5 % (36.0-66.0); PLATELET COUNT, AUTOMATED 227 10^3/uL (150-450); RED BLOOD COUNT 5.01 10^6/uL (4.30-6.10); WHITE BLOOD COUNT 6.6 10^3/uL (4.0-10.0)
[2020-05-30 13:35] LABS: HEMOGLOBIN A1c 6.2 %
== END ==
LOC: M LAB 10:05
PROVIDERS: ATTEND Family Medicine
DX: R73.01 Impaired fasting glucose (principal)

== ENCOUNTER → 2020-11-04 | Outpatient (CLI) | payer OTHER ==
[~2020-11-04] MED LIST changes: +GABA-282 PO; -GABA-843 PO
[2020-11-04 11:49] LABS: BASO % 0.7 % (0.0-1.0); EOS # 0.2 10^3/uL (0.0-0.5); EOS % 2.9 % (0.0-3.0); HEMATOCRIT 44.3 % (42.0-52.0); HEMOGLOBIN 14.8 g/dl (13.5-17.5); LYMPH # 1.7 10^3/uL (1.5-5.0); LYMPH % 28.4 % (24.0-44.0); MEAN CORPUSCULAR HEMOGLOBIN 30.3 pg (27.0-33.0); MEAN CORPUSCULAR HGB CONC 33.4 g/dl (32.0-36.5); MEAN CORPUSCULAR VOLUME 90.8 fl (80.0-96.0); MONO # 0.6 10^3/uL (0.0-0.8); MONO % 10.1 % (0.0-5.0); NEUTROPHILS # 3.4 10^3/uL (1.5-8.5); NEUTROPHILS % 57.6 % (36.0-66.0); PLATELET COUNT, AUTOMATED 211 10^3/uL (150-450); RED BLOOD COUNT 4.88 10^6/uL (4.30-6.10)
[2020-11-04 12:27] LABS: ALBUMIN 3.7 GM/DL (3.2-5.2); ALT/SGPT 32 U/L (12-78); BILIRUBIN,TOTAL 1.6 MG/DL (0.2-1.0); BLOOD UREA NITROGEN 11 MG/DL (7-18); CALCIUM LEVEL 8.8 MG/DL (8.5-10.1); CARBON DIOXIDE LEVEL 29 MEQ/L (21-32); CHLORIDE LEVEL 107 MEQ/L (98-107); CHOLESTEROL LEVEL 113 MG/DL (<200); CHOLESTEROL RISK RATIO 2.054 (<5); CREATININE FOR GFR 0.83 MG/DL (0.70-1.30); FERRITIN 70 NG/ML (26-388); GLOMERULAR FILTRATION RATE > 60.0 (>56); GLUCOSE, FASTING 96 MG/DL (70-100); HDL CHOLESTEROL 55 MG/DL (>40); IRON (FE) 94 UG/DL (65-175); LDL CHOLESTEROL 41 MG/DL (<100); NON-HDL-C 58 MG/DL; PERCENT SATURATION 30.3 % (19.7-50.0); POTASSIUM SERUM 4.6 MEQ/L (3.5-5.1); SODIUM LEVEL 143 MEQ/L (136-145); TOTAL IRON BINDING CAPACITY 310 UG/DL (250-450); TOTAL PROTEIN 6.9 GM/DL (6.4-8.2); TRIGLYCERIDES LEVEL 87 MG/DL (<150)
[2020-11-04 12:34] LABS: HEMOGLOBIN A1c 5.8 %
[2020-11-06 10:56] LABS: TOTAL 25(OH) VITAMIN D 26.8 NG/ML (30.0-100.0)
== END ==
LOC: M LAB 10:34
PROVIDERS: ATTEND Physician Assistant
DX: R73.01 Impaired fasting glucose (principal); E55.9 Vitamin D deficiency, unspecified; D50.9 Iron deficiency anemia, unspecified; I25.10 Atherosclerotic heart disease of native coronary artery without angina pectoris; F90.0 Attention-deficit hyperactivity disorder, predominantly inattentive type

== ENCOUNTER → 2021-02-09 | Outpatient (CLI) | payer OTHER ==
[~2021-02-09] MED LIST changes: +FERR324T21 PO; -FERR325T16 PO
--- NOTE | 2021-02-11 06:46 | REP ---
INDICATION: PAIN IN LEFT ANKLE AND JOINTS OF LEFT FOOT COMPARISON: None. TECHNIQUE: AP, lateral, bilateral oblique views left foot. FINDINGS: No evidence for acute fracture or dislocation. The metatarsophalangeal and interphalangeal joints are essentially age-appropriate. The tarsal and tarsometatarsal joints appear relatively age-appropriate as well. Surrounding soft tissues are unremarkable. Lateral view demonstrates small calcaneal heel spur. IMPRESSION: Relatively age-appropriate examination.. <Electronically signed by Roque Stuart > 02/11/21 [id number]
--- NOTE | 2021-02-11 06:52 | REP ---
INDICATION: PAIN IN LEFT ANKLE AND JOINTS OF LEFT FOOT COMPARISON: None. TECHNIQUE: AP, lateral, bilateral oblique views. FINDINGS: No acute fracture or dislocation. Skeletal structures and joint spaces are intact and essentially age-appropriate. Ankle mortise appears stable. No subcutaneous emphysema or radiodense foreign body. IMPRESSION: Relatively age-appropriate examination. <Electronically signed by Roque Stuart > 02/11/21 0649
== END ==
LOC: M RAD 13:00
PROVIDERS: ATTEND Nurse Practitioner Family
DX: M25.572 Pain in left ankle and joints of left foot (principal)

== ENCOUNTER → 2021-04-05 | Outpatient (CLI) | payer OTHER ==
--- NOTE | 2021-04-05 15:57 | REP ---
INDICATION: PAIN IN RIGHT ANKLE AND JOINTS OF RIGHT FOOT COMPARISON: None. TECHNIQUE: AP, lateral, bilateral oblique views. FINDINGS: Generalized age-related changes include subtle cortical irregularity at the medial and lateral malleoli. Lateral view demonstrates a very small calcaneal heel spur along with minimal calcification at the Achilles insertion. There is no evidence for acute fracture or dislocation. Ankle mortise and talar dome appear normal. IMPRESSION: Generalized age-related changes suggested. <Electronically signed by Roque Stuart > 04/05/21 [id number]
== END ==
LOC: M RAD 15:18
PROVIDERS: ATTEND Family Medicine
DX: M25.571 Pain in right ankle and joints of right foot (principal); M77.31 Calcaneal spur, right foot

== ENCOUNTER → 2021-05-08 | Outpatient (CLI) | payer OTHER ==
[~2021-05-08] MED LIST changes: +ISOVUE-300 61% 50ML VIAL As Ordered ONE; +ISOVUE-370 76% 100ML VIAL As Ordered ONE; +LIDOCAINE 1% MDV 20ML VIAL As Ordered ONE; +TRIAMCINOLONE ACETONIDE SUSP 40 MG/ML VIAL (J3301) As Ordered ONE
--- NOTE | 2021-05-08 17:06 | REP ---
INDICATION: PRIMARY OSTEOARTHRITIS. COMPARISON: None TECHNIQUE: The procedure was performed by PIOTR Reyes, under the direct supervision of Dr. Chandler. The benefits and risks of the procedure were explained to the patient, and an informed consent was obtained. Directly prior to the start of the procedure, a formal time-out was completed in the procedure room. The right tibiotalar joint space was localized using fluoroscopic guidance. The skin was prepped and draped in a sterile fashion. Approximately 1 mL of 1% Lidocaine 10 mg/ml was used as a local anesthetic. Using fluoroscopic guidance, a #22 gauge spinal needle was inserted and advanced into the right tibiotalar joint space. Approximately 1 mL of Isovue 300 was injected to verify placement. Three mL of a solution containing 2 mL 1% lidocaine 10 mg/ml and 1 mL Kenalog 40 milligrams/milliliter was injected into the joint space. The needle was removed and hemostasis was achieved. FINDINGS: The patient tolerated the procedure well and there were no immediate complications. IMPRESSION: 1. Right tibiotalar joint injection under fluoroscopic guidance. 0.1 minutes of fluoroscopy time was utilized for this procedure. Some fluoroscopic images are performed with last image hold technology. These images require no additional radiation. <Electronically signed by Leah Talavera > 05/08/21 1529 <Electronically signed by Javier Chandler > 05/08/21 [id number]
== END ==
LOC: M RADPRO 13:24
PROVIDERS: ATTEND Orthopaedic Surgery
DX: M19.071 Primary osteoarthritis, right ankle and foot (principal)
CPT/HCPCS: 20605; 77002; J3301; Q9967

== ENCOUNTER → 2021-08-13 | Outpatient (CLI) | payer OTHER ==
[~2021-08-13] MED LIST changes: -ISOVUE-300 61% 50ML VIAL As Ordered ONE; -ISOVUE-370 76% 100ML VIAL As Ordered ONE; -LIDOCAINE 1% MDV 20ML VIAL As Ordered ONE; -TRIAMCINOLONE ACETONIDE SUSP 40 MG/ML VIAL (J3301) As Ordered ONE
[2021-08-13 14:28] LABS: ALBUMIN 3.8 GM/DL (3.2-5.2); ALT/SGPT 33 U/L (12-78); BILIRUBIN,TOTAL 1.2 MG/DL (0.2-1.0); BLOOD UREA NITROGEN 16 MG/DL (7-18); CALCIUM LEVEL 9.5 MG/DL (8.5-10.1); CARBON DIOXIDE LEVEL 29 MEQ/L (21-32); CHLORIDE LEVEL 105 MEQ/L (98-107); CHOLESTEROL LEVEL 129 MG/DL (<200); CHOLESTEROL RISK RATIO 2.224 (<5); CREATININE FOR GFR 0.81 MG/DL (0.70-1.30); GLOMERULAR FILTRATION RATE > 60.0 (>56); GLUCOSE, FASTING 99 MG/DL (70-100); HDL CHOLESTEROL 58 MG/DL (>40); LDL CHOLESTEROL 48 MG/DL (<100); NON-HDL-C 71 MG/DL; POTASSIUM SERUM 4.1 MEQ/L (3.5-5.1); SODIUM LEVEL 140 MEQ/L (136-145); TOTAL PROTEIN 7.5 GM/DL (6.4-8.2); TRIGLYCERIDES LEVEL 115 MG/DL (<150)
== END ==
LOC: M LAB 12:43
PROVIDERS: ATTEND Nurse Practitioner Family
DX: I10 Essential (primary) hypertension (principal); R73.03 Prediabetes; E78.2 Mixed hyperlipidemia

== ENCOUNTER 2021-09-25 13:51 | Emergency (ER) | payer OTHER ==
[~2021-09-25] VITALS: Ht 172.7 cm; Wt 80.9 kg
[2021-09-25] MEDS: NITROGLYCERIN 0.4 MG SUBL TABLET SL PRN ×3 (14:39→15:03)
[2021-09-25 14:55] LABS: BASO # 0.1 10^3/uL (0.0-0.2); BASO % 0.8 % (0.0-1.0); EOS # 0.1 10^3/uL (0.0-0.5); EOS % 1.5 % (0.0-3.0); HEMATOCRIT 47.8 % (42.0-52.0); HEMOGLOBIN 15.9 g/dl (13.5-17.5); LYMPH # 1.5 10^3/uL (1.5-5.0); LYMPH % 22.3 % (24.0-44.0); MEAN CORPUSCULAR HEMOGLOBIN 29.5 pg (27.0-33.0); MEAN CORPUSCULAR HGB CONC 33.3 g/dl (32.0-36.5); MEAN CORPUSCULAR VOLUME 88.7 fl (80.0-96.0); MONO # 0.5 10^3/uL (0.0-0.8); MONO % 8.2 % (2.0-8.0); NEUTROPHILS # 4.4 10^3/uL (1.5-8.5); NEUTROPHILS % 66.9 % (36.0-66.0); PLATELET COUNT, AUTOMATED 242 10^3/uL (150-450); RED BLOOD COUNT 5.39 10^6/uL (4.30-6.10); WHITE BLOOD COUNT 6.6 10^3/uL (4.0-10.0)
[2021-09-25] MEDS ORDERED: MORPHINE 4 MG/ML 1ML VIAL/SYRINGE (J2270) IV PRN (14:55)
--- NOTE | 2021-09-25 14:56 | REP ---
INDICATION: CHEST PAIN. COMPARISON: 01/27/2020 the latest prior TECHNIQUE: Portable FINDINGS: The technique utilized in obtaining the radiograph has magnified the cardiac silhouette and accentuated the interstitial markings. The superior mediastinal structures are midline. The cardiac silhouette is unremarkable in size, shape, and position. The diaphragmatic surfaces of the lungs are regular, and the costophrenic angles are clear. The pulmonary wright are clear. The imaged osseous structures are intact. IMPRESSION: There is no acute cardiopulmonary disease. <Electronically signed by Vance White > 09/25/21 [id number]
[2021-09-25 15:03] VITALS: BP 137/74
[2021-09-25 15:08] LABS: INR 1.2; PROTHROMBIN TIME 15.6 SECONDS (12.7-14.5)
[2021-09-25 15:09] LABS: PARTIAL THROMBOPLASTIN TIME 30.1 SECONDS (25.9-37.0)
[2021-09-25 15:34] LABS: ALBUMIN 4.1 GM/DL (3.2-5.2); ALT/SGPT 33 U/L (12-78); BILIRUBIN,DIRECT 0.4 MG/DL (0.0-0.2); BILIRUBIN,TOTAL 1.5 MG/DL (0.2-1.0); BLOOD UREA NITROGEN 13 MG/DL (7-18); CALCIUM LEVEL 9.1 MG/DL (8.5-10.1); CARBON DIOXIDE LEVEL 27 MEQ/L (21-32); CHLORIDE LEVEL 109 MEQ/L (98-107); GLOMERULAR FILTRATION RATE > 60.0 (>56); GLUCOSE, FASTING 99 MG/DL (70-100); LIPASE 160 U/L (73-393); NT-PRO BNP 35 PG/ML (<125); POTASSIUM SERUM 4.2 MEQ/L (3.5-5.1); SODIUM LEVEL 142 MEQ/L (136-145); TOTAL PROTEIN 7.7 GM/DL (6.4-8.2)
[2021-09-25] MEDS ORDERED: ISOVUE-370 76% 100ML VIAL As Ordered ONE (15:43)
--- NOTE | 2021-09-25 16:12 | REP ---
INDICATION: CP COMPARISON: Multiple the latest 01/27/2020 TECHNIQUE: CT angiography chest after the intravenous administration of 75 cc Isovue 370. FINDINGS: There is excellent visualization of the pulmonary arterial vasculature. There are no focal filling defects present that would be considered consistent with acute pulmonary emboli. There are no pleural or pericardial effusions. There is no mediastinal or hilar adenopathy. Limited evaluation of the thoracic aorta shows no gross abnormality. The imaged upper abdomen is unchanged. There is no significant change in appearance of the imaged osseous structures. Evaluation of the lung wright shows no abnormal nodules, masses, or opacities. There is an incidental calcified granuloma in the right lower lobe. IMPRESSION: There is no evidence of acute disease. <Electronically signed by Vance White > 09/25/21 [id number]
[2021-09-25] MEDS ORDERED: GI COCKTAIL 50ML BTL(HYOSCYAMINE/MAALOX/LIDOCAINE VISCOUS)(1:3:1) PO ONE (16:35)
[2021-09-25] MEDS: MORPHINE 2 MG/ML 1ML VIAL (J2270) IV PRN ×2 (17:36→18:31)
--- NOTE | 2021-09-25 19:13 | REPVR ---
PROCEDURE INFORMATION: Exam: CT Abdomen And Pelvis Without Contrast Exam date and time: 09/25/2021 6:22 PM Age: 55 years old Clinical indication: Abdominal pain; Additional info: Abd pain TECHNIQUE: Imaging protocol: Computed tomography of the abdomen and pelvis without contrast. Radiation optimization: All CT scans at this facility use at least one of these dose optimization techniques: automated exposure control; mA and/or kV adjustment per patient size (includes targeted exams where dose is matched to clinical indication); or iterative reconstruction. COMPARISON: CT ANGIO CHEST 09/25/2021 3:42 PM FINDINGS: Lungs: No suspicious mass or airspace process in the visualized lung bases. Liver: Noncontrast liver shows no obvious lesion. Gallbladder and bile ducts: Gallbladder is present and shows no evidence of gallstone. Pancreas: Noncontrast pancreas shows no obvious mass or adjacent fluid. Spleen: Noncontrast spleen shows no obvious focal deformity. Adrenal glands: Adrenal glands are normal in appearance. Kidneys and ureters: Kidneys appear normal, with no stone, solid mass or hydronephrosis. Stomach and bowel: Limited evaluation without enteric or IV contrast. No concerning asymmetry or abnormality at the gastroesophageal junction. No evidence of small bowel obstruction. No evidence of acute diverticulitis. Appendix: Normal caliber appendix is identified, with no adjacent inflammation. Intraperitoneal space: No pneumoperitoneum. Vasculature: No aortic aneurysm. Lymph nodes: No enlarged lymph nodes. Urinary bladder: Urinary bladder appears normal. Reproductive: No overt enlargement of the prostate gland. Bones/joints: Bony structures are normal except for lumbar spine degenerative disc changes. Soft tissues: No concerning focal abnormality of the extra-abdominal and pelvic soft tissues. IMPRESSION: No acute or concerning focal abdominal or pelvic process on noncontrast CT Electronically signed by: Omi Odell On 09/25/2021 19:13:06 PM
[2021-09-25 20:05] VITALS: BP 140/85
--- NOTE | 2021-09-26 19:32 | ECGEPIP ---
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
== END 2021-09-25 20:17 | disposition home or self-care (01) ==
LOC: M ED 13:51
DX: R07.9 Chest pain, unspecified (principal); I25.10 Atherosclerotic heart disease of native coronary artery without angina pectoris; I25.2 Old myocardial infarction; R73.03 Prediabetes; Z95.5 Presence of coronary angioplasty implant and graft; Z82.49 Family history of ischemic heart disease and other diseases of the circulatory system; Z79.82 Long term (current) use of aspirin; Z79.899 Other long term (current) drug therapy
CPT/HCPCS: 71045; 71275; 74176; 80048; 80076; 82550; 82553; 83690; 83880; 84443; 84484; 85025; 85610; 85730; 93005; 93041; 94760; 96374; 96376; 99285; J2270; Q9967

== ENCOUNTER 2021-10-29 18:16 | Emergency (ER) | payer OTHER ==
[~2021-10-29] VITALS: Ht 170.2 cm; Wt 175.0 kg
[~2021-10-29 18:16] MED LIST changes: +OMEP-173 PO; -OMEP-218 PO
[2021-10-29] MEDS ORDERED: NITROGLYCERIN 0.4 MG SUBL TABLET SL PRN (18:40)
[2021-10-29 19:12] LABS: BASO % 0.4 % (0.0-1.0); EOS # 0.2 10^3/uL (0.0-0.5); EOS % 4.6 % (0.0-3.0); HEMATOCRIT 44.9 % (42.0-52.0); HEMOGLOBIN 14.9 g/dl (13.5-17.5); LYMPH # 0.9 10^3/uL (1.5-5.0); LYMPH % 18.4 % (24.0-44.0); MEAN CORPUSCULAR HEMOGLOBIN 30.1 pg (27.0-33.0); MEAN CORPUSCULAR HGB CONC 33.2 g/dl (32.0-36.5); MEAN CORPUSCULAR VOLUME 90.7 fl (80.0-96.0); MONO # 0.6 10^3/uL (0.0-0.8); MONO % 11.9 % (2.0-8.0); NEUTROPHILS # 3.1 10^3/uL (1.5-8.5); NEUTROPHILS % 64.5 % (36.0-66.0); PLATELET COUNT, AUTOMATED 218 10^3/uL (150-450); RED BLOOD COUNT 4.95 10^6/uL (4.30-6.10); WHITE BLOOD COUNT 4.8 10^3/uL (4.0-10.0)
[2021-10-29 19:36] LABS: ALBUMIN 3.5 GM/DL (3.2-5.2); ALT/SGPT 29 U/L (12-78); BILIRUBIN,DIRECT 0.3 MG/DL (0.0-0.2); BILIRUBIN,TOTAL 1.2 MG/DL (0.2-1.0); BLOOD UREA NITROGEN 13 MG/DL (7-18); CALCIUM LEVEL 9.2 MG/DL (8.5-10.1); CARBON DIOXIDE LEVEL 31 MEQ/L (21-32); CHLORIDE LEVEL 106 MEQ/L (98-107); CK-MB VALUE MASS 1.5 NG/ML (<3.6); CREATININE FOR GFR 0.69 MG/DL (0.70-1.30); FREE T4 1.37 NG/DL (0.76-1.46); GLOMERULAR FILTRATION RATE > 60.0 (>56); GLUCOSE, FASTING 111 MG/DL (70-100); LIPASE 206 U/L (73-393); MB/CK RELATIVE INDEX 1.42 (< OR =4); NT-PRO BNP 102 PG/ML (<125); POTASSIUM SERUM 4.2 MEQ/L (3.5-5.1); SODIUM LEVEL 141 MEQ/L (136-145); THYROID STIMULATING HORMONE 0.772 uIU/ML (0.358-3.740); TOTAL PROTEIN 7.1 GM/DL (6.4-8.2)
[2021-10-29 20:58] LABS: CK-MB VALUE MASS 1.5 NG/ML (<3.6); MB/CK RELATIVE INDEX 1.7 (< OR =4)
[2021-10-29 21:15] VITALS: BP 133/65
== END 2021-10-29 21:46 | disposition home or self-care (01) ==
LOC: M ED 18:16
DX: R07.89 Other chest pain (principal); I45.19 Other right bundle-branch block; I25.10 Atherosclerotic heart disease of native coronary artery without angina pectoris; E11.9 Type 2 diabetes mellitus without complications; Z95.1 Presence of aortocoronary bypass graft; Z79.84 Long term (current) use of oral hypoglycemic drugs; Z79.01 Long term (current) use of anticoagulants; Z79.82 Long term (current) use of aspirin; Z79.899 Other long term (current) drug therapy

== ENCOUNTER → 2022-01-29 | Outpatient (CLI) | payer OTHER ==
[2022-01-29 12:21] LABS: BASO # 0.1 10^3/uL (0.0-0.2); BASO % 0.8 % (0.0-1.0); EOS # 0.1 10^3/uL (0.0-0.5); EOS % 1.8 % (0.0-3.0); HEMATOCRIT 45.3 % (42.0-52.0); HEMOGLOBIN 15.1 g/dl (13.5-17.5); LYMPH # 1.3 10^3/uL (1.5-5.0); LYMPH % 20.5 % (24.0-44.0); MEAN CORPUSCULAR HEMOGLOBIN 31.1 pg (27.0-33.0); MEAN CORPUSCULAR HGB CONC 33.3 g/dl (32.0-36.5); MEAN CORPUSCULAR VOLUME 93.2 fl (80.0-96.0); MONO # 0.6 10^3/uL (0.0-0.8); MONO % 9.2 % (2.0-8.0); NEUTROPHILS # 4.4 10^3/uL (1.5-8.5); NEUTROPHILS % 67.4 % (36.0-66.0); PLATELET COUNT, AUTOMATED 213 10^3/uL (150-450); RED BLOOD COUNT 4.86 10^6/uL (4.30-6.10); WHITE BLOOD COUNT 6.6 10^3/uL (4.0-10.0)
[2022-01-29 12:48] LABS: BLOOD UREA NITROGEN 14 MG/DL (7-18); CALCIUM LEVEL 9.8 MG/DL (8.5-10.1); CARBON DIOXIDE LEVEL 30 MEQ/L (21-32); CHLORIDE LEVEL 107 MEQ/L (98-107); CREATININE FOR GFR 0.74 MG/DL (0.70-1.30); GLOMERULAR FILTRATION RATE > 60.0 (>56); GLUCOSE, FASTING 103 MG/DL (70-100); POTASSIUM SERUM 4.5 MEQ/L (3.5-5.1); SODIUM LEVEL 142 MEQ/L (136-145)
[2022-01-29 13:08] LABS: HEMOGLOBIN A1c 5.8 %
== END ==
LOC: M LAB 10:48
PROVIDERS: ATTEND Nurse Practitioner Family
DX: Z01.818 Encounter for other preprocedural examination (principal); R73.01 Impaired fasting glucose

== ENCOUNTER 2022-02-27 11:02 | Emergency (ER) | payer OTHER ==
[~2022-02-27] VITALS: Ht 170.2 cm; Wt 77.3 kg
[2022-02-27 11:51] LABS: BASO # 0.1 10^3/uL (0.0-0.2); BASO % 0.8 % (0.0-1.0); EOS # 0.2 10^3/uL (0.0-0.5); EOS % 3.3 % (0.0-3.0); HEMATOCRIT 42.7 % (42.0-52.0); HEMOGLOBIN 14.7 g/dl (13.5-17.5); LYMPH # 1.5 10^3/uL (1.5-5.0); LYMPH % 23.9 % (24.0-44.0); MEAN CORPUSCULAR HEMOGLOBIN 31.7 pg (27.0-33.0); MEAN CORPUSCULAR HGB CONC 34.4 g/dl (32.0-36.5); MONO # 0.7 10^3/uL (0.0-0.8); MONO % 11.3 % (2.0-8.0); NEUTROPHILS # 3.9 10^3/uL (1.5-8.5); NEUTROPHILS % 60.4 % (36.0-66.0); PLATELET COUNT, AUTOMATED 225 10^3/uL (150-450); RED BLOOD COUNT 4.64 10^6/uL (4.30-6.10); WHITE BLOOD COUNT 6.4 10^3/uL (4.0-10.0)
[2022-02-27 12:03] LABS: INR 1.13; PARTIAL THROMBOPLASTIN TIME 31.4 SECONDS (25.9-37.0); PROTHROMBIN TIME 14.9 SECONDS (12.7-14.5)
[2022-02-27 12:13] LABS: BLOOD UREA NITROGEN 14 MG/DL (7-18); CALCIUM LEVEL 8.9 MG/DL (8.5-10.1); CARBON DIOXIDE LEVEL 29 MEQ/L (21-32); CHLORIDE LEVEL 106 MEQ/L (98-107); CREATININE FOR GFR 0.84 MG/DL (0.70-1.30); GLOMERULAR FILTRATION RATE > 60.0 (>56); GLUCOSE, FASTING 101 MG/DL (70-100); POTASSIUM SERUM 4.2 MEQ/L (3.5-5.1); SODIUM LEVEL 138 MEQ/L (136-145)
[2022-02-27 12:17] LABS: CK-MB VALUE MASS < 1.0 NG/ML (<3.6); CPK CREATINE PHOSPHOKINASE 101 U/L (39-308); MB/CK RELATIVE INDEX 0.99 (< OR =4)
[2022-02-27] MEDS ORDERED: NITROGLYCERIN 0.4 MG SUBL TABLET SL PRN (12:20)
[2022-02-27] MEDS ORDERED: ISOVUE-370 76% 100ML VIAL As Ordered ONE (12:23)
[2022-02-27 14:09] LABS: CK-MB VALUE MASS < 1.0 NG/ML (<3.6); CPK CREATINE PHOSPHOKINASE 111 U/L (39-308)
[2022-02-27] MEDS ORDERED: KETOROLAC 30 MG/ML 1ML VIAL IV ONE (14:25)
[2022-02-27 15:26] LABS: CK-MB VALUE MASS < 1.0 NG/ML (<3.6); CPK CREATINE PHOSPHOKINASE 93 U/L (39-308); MB/CK RELATIVE INDEX 1.08 (< OR =4)
[2022-02-27 16:15] VITALS: BP 114/58
== END 2022-02-27 16:24 | disposition home or self-care (01) ==
LOC: M ED 11:02
DX: R07.9 Chest pain, unspecified (principal); R91.1 Solitary pulmonary nodule; Z87.891 Personal history of nicotine dependence; Z95.1 Presence of aortocoronary bypass graft
CPT/HCPCS: 71045; 71275; 80048; 82550; 82553; 84484; 85025; 85610; 85730; 93005; 93041; 94760; 96374; 99285; J1885; Q9967

== ENCOUNTER 2022-06-21 15:31 | Emergency (ER) | payer OTHER ==
[2022-06-21 16:02] LABS: BASO % 0.6 % (0.0-1.0); EOS # 0.1 10^3/uL (0.0-0.5); EOS % 1.3 % (0.0-3.0); HEMATOCRIT 41.6 % (42.0-52.0); HEMOGLOBIN 14.3 g/dl (13.5-17.5); LYMPH # 1.4 10^3/uL (1.5-5.0); LYMPH % 26.4 % (24.0-44.0); MEAN CORPUSCULAR HEMOGLOBIN 31.2 pg (27.0-33.0); MEAN CORPUSCULAR HGB CONC 34.4 g/dl (32.0-36.5); MEAN CORPUSCULAR VOLUME 90.6 fl (80.0-96.0); MONO # 0.4 10^3/uL (0.0-0.8); MONO % 6.5 % (2.0-8.0); NEUTROPHILS # 3.5 10^3/uL (1.5-8.5); NEUTROPHILS % 64.6 % (36.0-66.0); RED BLOOD COUNT 4.59 10^6/uL (4.30-6.10); WHITE BLOOD COUNT 5.4 10^3/uL (4.0-10.0)
[2022-06-21 16:31] LABS: BLOOD UREA NITROGEN 11 MG/DL (7-18); CALCIUM LEVEL 9.4 MG/DL (8.5-10.1); CARBON DIOXIDE LEVEL 26 MEQ/L (21-32); CHLORIDE LEVEL 105 MEQ/L (98-107); CREATININE FOR GFR 0.85 MG/DL (0.70-1.30); GLOMERULAR FILTRATION RATE > 60.0 (>56); GLUCOSE, FASTING 143 MG/DL (70-100); POTASSIUM SERUM 3.8 MEQ/L (3.5-5.1); SODIUM LEVEL 137 MEQ/L (136-145)
[2022-06-21 16:34] LABS: CK-MB VALUE MASS 1.1 NG/ML (<3.6); MB/CK RELATIVE INDEX 1.09 (< OR =4)
[2022-06-21 17:32] LABS: CK-MB VALUE MASS 1.3 NG/ML (<3.6); MB/CK RELATIVE INDEX 1.2 (< OR =4)
[2022-06-21 18:45] VITALS: BP 135/68
== END 2022-06-21 19:06 | disposition home or self-care (01) ==
LOC: EDBD 15:31 → M ED 15:31
DX: R07.9 Chest pain, unspecified (principal); R00.1 Bradycardia, unspecified; I45.19 Other right bundle-branch block; I44.4 Left anterior fascicular block; I25.10 Atherosclerotic heart disease of native coronary artery without angina pectoris; I25.2 Old myocardial infarction; E78.5 Hyperlipidemia, unspecified; Z95.5 Presence of coronary angioplasty implant and graft; Z87.891 Personal history of nicotine dependence; Z79.82 Long term (current) use of aspirin; Z79.84 Long term (current) use of oral hypoglycemic drugs; Z79.899 Other long term (current) drug therapy

== ENCOUNTER → 2022-06-25 | Outpatient (CLI) | payer OTHER ==
[2022-06-25 14:40] LABS: BASO # 0.1 10^3/uL (0.0-0.2); BASO % 0.8 % (0.0-1.0); EOS # 0.2 10^3/uL (0.0-0.5); HEMATOCRIT 44.1 % (42.0-52.0); HEMOGLOBIN 14.9 g/dl (13.5-17.5); LYMPH # 1.5 10^3/uL (1.5-5.0); LYMPH % 24.2 % (24.0-44.0); MEAN CORPUSCULAR HGB CONC 33.8 g/dl (32.0-36.5); MEAN CORPUSCULAR VOLUME 91.9 fl (80.0-96.0); MONO # 0.5 10^3/uL (0.0-0.8); NEUTROPHILS # 3.8 10^3/uL (1.5-8.5); NEUTROPHILS % 63.7 % (36.0-66.0); PLATELET COUNT, AUTOMATED 224 10^3/uL (150-450)
[2022-06-25 15:20] LABS: ALBUMIN 3.9 GM/DL (3.2-5.2); ALT/SGPT 27 U/L (12-78); BILIRUBIN,TOTAL 1.7 MG/DL (0.2-1.0); BLOOD UREA NITROGEN 11 MG/DL (7-18); CALCIUM LEVEL 9.3 MG/DL (8.5-10.1); CARBON DIOXIDE LEVEL 30 MEQ/L (21-32); CHLORIDE LEVEL 107 MEQ/L (98-107); CREATININE FOR GFR 0.93 MG/DL (0.70-1.30); GLOMERULAR FILTRATION RATE > 60.0 (>56); GLUCOSE, FASTING 111 MG/DL (70-100); LIPASE 240 U/L (73-393); POTASSIUM SERUM 4.3 MEQ/L (3.5-5.1); SODIUM LEVEL 141 MEQ/L (136-145); TOTAL PROTEIN 7.5 GM/DL (6.4-8.2)
[2022-06-27 16:08] LABS: H PYLORI SERUM QUANT IGA <9.0 units (0.0-8.9); H PYLORI SERUM QUANT IGM <9.0 units (0.0-8.9); H PYLORI SERUM QUANT IgG ABY 0.19 (0.00-0.79)
== END ==
LOC: M LAB 13:45
PROVIDERS: ATTEND Nurse Practitioner Family
DX: R07.89 Other chest pain (principal)

== ENCOUNTER → 2022-10-28 | Outpatient (CLI) | payer OTHER ==
[~2022-10-28] MED LIST changes: +CLOP75TA99 PO; -PLAV1TAB2 PO; -POTA10CA32 PO; +POTA10CA33 PO
[2022-10-28 17:01] LABS: CREATININE, URINE 38.7 MG/DL; MALB URINE SIEMENS < 3.0 MG/DL; MAU/CREAT RATIO 7.7 MCG/MG (0.0-30.0)
[2022-10-28 17:06] LABS: ALBUMIN 3.9 G/DL (3.2-5.2); ALKALINE PHOSPHATASE 90 U/L (46-116); ALT/SGPT 26 U/L (7.0-40); AST/SGOT 26 U/L (<34); BILIRUBIN,TOTAL 1.9 MG/DL (0.3-1.2); BLOOD UREA NITROGEN 16 MG/DL (9-23); CALCIUM LEVEL 9.5 MG/DL (8.5-10.1); CARBON DIOXIDE LEVEL 30 MMOL/L (20-31); CHLORIDE LEVEL 105 MMOL/L (98-107); CHOLESTEROL LEVEL 104 MG/DL (<200); CREATININE FOR GFR 0.83 MG/DL (0.70-1.30); GLOMERULAR FILTRATION RATE > 60.0 (>56); GLUCOSE, FASTING 90 MG/DL (60-100); HDL CHOLESTEROL 49.5 MG/DL (>40); LDL CHOLESTEROL 42.3 MG/DL (<100); NON-HDL-C 55 MG/DL; POTASSIUM SERUM 4.9 MMOL/L (3.5-5.1); SODIUM LEVEL 140 MMOL/L (136-145); TOTAL 25(OH) VITAMIN D 24.8 NG/ML (20.0-100.0); TRIGLYCERIDES LEVEL 61 MG/DL (<150)
[2022-10-28 17:13] LABS: HEMOGLOBIN A1c 5.6 % (4.0-6.0)
== END ==
LOC: M LAB 14:19
PROVIDERS: ATTEND Nurse Practitioner Family
DX: I10 Essential (primary) hypertension (principal); R73.03 Prediabetes; I25.10 Atherosclerotic heart disease of native coronary artery without angina pectoris; E55.9 Vitamin D deficiency, unspecified

== ENCOUNTER → 2023-03-04 | Outpatient (CLI) | payer OTHER | LOC: M PLALAB 14:55 | PROVIDERS: ATTEND Nurse Practitioner Family | DX: M25.512 Pain in left shoulder (principal) ==

== ENCOUNTER → 2023-03-13 | Outpatient (CLI) | payer OTHER ==
[~2023-03-13] MED LIST changes: -POTA10CA33 PO; +POTA10CA60 PO
[2023-03-13 13:26] LABS: BASO # 0.1 10^3/uL (0.0-0.2); BASO % 0.8 % (0.0-1.0); EOS # 0.2 10^3/uL (0.0-0.5); EOS % 3.4 % (0.0-3.0); HEMATOCRIT 44.5 % (42.0-52.0); HEMOGLOBIN 14.9 g/dl (13.5-17.5); LYMPH # 1.9 10^3/uL (1.5-5.0); LYMPH % 29.1 % (24.0-44.0); MEAN CORPUSCULAR HEMOGLOBIN 30.8 pg (27.0-33.0); MEAN CORPUSCULAR HGB CONC 33.5 g/dl (32.0-36.5); MEAN CORPUSCULAR VOLUME 91.9 fl (80.0-96.0); MONO # 0.6 10^3/uL (0.0-0.8); MONO % 9.5 % (2.0-8.0); NEUTROPHILS # 3.7 10^3/uL (1.5-8.5); NEUTROPHILS % 56.9 % (36.0-66.0); PLATELET COUNT, AUTOMATED 226 10^3/uL (150-450); RED BLOOD COUNT 4.84 10^6/uL (4.30-6.10); WHITE BLOOD COUNT 6.5 10^3/uL (4.0-10.0)
[2023-03-13 13:55] LABS: ALBUMIN 3.9 G/DL (3.2-5.2); ALKALINE PHOSPHATASE 82 U/L (46-116); ALT/SGPT 22 U/L (7.0-40); AST/SGOT 17 U/L (<34); BILIRUBIN,TOTAL 1.7 MG/DL (0.3-1.2); BLOOD UREA NITROGEN 14 MG/DL (9-23); CALCIUM LEVEL 8.9 MG/DL (8.5-10.1); CARBON DIOXIDE LEVEL 31 MMOL/L (20-31); CHLORIDE LEVEL 105 MMOL/L (98-107); CREATININE FOR GFR 0.78 MG/DL (0.70-1.30); GLOMERULAR FILTRATION RATE > 60.0 (>56); GLUCOSE, FASTING 94 MG/DL (60-100); POTASSIUM SERUM 4.6 MMOL/L (3.5-5.1); SODIUM LEVEL 141 MMOL/L (136-145); TOTAL PROTEIN 6.7 G/DL (5.7-8.2)
== END ==
LOC: M PLAIMG 08:57
PROVIDERS: ATTEND Nurse Practitioner Family
DX: M54.50 Low back pain, unspecified (principal); M47.9 Spondylosis, unspecified

== ENCOUNTER → 2023-03-25 | Outpatient (CLI) | payer OTHER ==
[~2023-03-25] MED LIST changes: +ISOVUE-370 76% 100ML VIAL As Ordered ONE
== END ==
LOC: M RAD 10:39
PROVIDERS: ATTEND Nurse Practitioner Family
DX: R91.1 Solitary pulmonary nodule (principal)
CPT/HCPCS: 71260; Q9967

== ENCOUNTER 2023-04-11 00:57 | Emergency (ER) | payer OTHER ==
[~2023-04-11] VITALS: Ht 182.9 cm; Wt 84.0 kg
[~2023-04-11 00:57] MED LIST changes: -ISOVUE-370 76% 100ML VIAL As Ordered ONE
[2023-04-11 01:28] LABS: BASO # 0.1 10^3/uL (0.0-0.2); EOS # 0.3 10^3/uL (0.0-0.5); EOS % 4.6 % (0.0-3.0); HEMATOCRIT 40.2 % (42.0-52.0); LYMPH # 1.9 10^3/uL (1.5-5.0); LYMPH % 32.5 % (24.0-44.0); MEAN CORPUSCULAR HEMOGLOBIN 30.8 pg (27.0-33.0); MEAN CORPUSCULAR HGB CONC 34.8 g/dl (32.0-36.5); MEAN CORPUSCULAR VOLUME 88.5 fl (80.0-96.0); MONO # 0.6 10^3/uL (0.0-0.8); MONO % 10.9 % (2.0-8.0); NEUTROPHILS % 50.8 % (36.0-66.0); PLATELET COUNT, AUTOMATED 232 10^3/uL (150-450); RED BLOOD COUNT 4.54 10^6/uL (4.30-6.10); WHITE BLOOD COUNT 5.9 10^3/uL (4.0-10.0)
[2023-04-11 01:55] LABS: CPK CREATINE PHOSPHOKINASE 244 U/L (46-171); RSV AMPLIFICATION NEGATIVE (NEGATIVE)
[2023-04-11 01:56] LABS: BLOOD UREA NITROGEN 14 MG/DL (9-23); CALCIUM LEVEL 9.2 MG/DL (8.5-10.1); CARBON DIOXIDE LEVEL 27 MMOL/L (20-31); CHLORIDE LEVEL 104 MMOL/L (98-107); CK-MB VALUE MASS 1.9 NG/ML (<3.6); CREATININE FOR GFR 0.84 MG/DL (0.70-1.30); GLOMERULAR FILTRATION RATE > 60.0 (>56); GLUCOSE, FASTING 108 MG/DL (60-100); MB/CK RELATIVE INDEX 0.77 (< OR =4); POTASSIUM SERUM 3.7 MMOL/L (3.5-5.1); SODIUM LEVEL 139 MMOL/L (136-145)
[2023-04-11 01:58] LABS: THYROID STIMULATING HORMONE 1.785 uIU/ML (0.55-4.78)
[2023-04-11 02:44] LABS: CK-MB VALUE MASS 1.5 NG/ML (<3.6)
[2023-04-11 02:50] LABS: MB/CK RELATIVE INDEX 0.66 (< OR =4)
[2023-04-11] MEDS ORDERED: MORPHINE 4 MG/ML 1ML VIAL IV ONE (03:25)
[2023-04-11] MEDS ORDERED: dexAMETHasone 20MG/5ML VIAL IV ONE (04:55)
[2023-04-11 05:30] VITALS: TEMP 97
[2023-04-11 06:00] VITALS: BP 140/67; O2SAT 96
[2023-04-11] MEDS ORDERED: DEXA6TAB PO (06:50)
== END 2023-04-11 07:01 | disposition home or self-care (01) ==
LOC: M ED 00:57
DX: M54.12 Radiculopathy, cervical region (principal); K02.9 Dental caries, unspecified; E11.9 Type 2 diabetes mellitus without complications; I10 Essential (primary) hypertension; K21.9 Gastro-esophageal reflux disease without esophagitis; K59.00 Constipation, unspecified; E78.5 Hyperlipidemia, unspecified; Z95.1 Presence of aortocoronary bypass graft; Z79.899 Other long term (current) drug therapy
CPT/HCPCS: 71045; 72125; 80048; 82550; 82553; 84443; 84484; 85025; 87631; 93005; 93041; 94760; 96374; 96375; 99285; J1100

== ENCOUNTER → 2023-05-06 | Outpatient (CLI) | payer OTHER ==
[~2023-05-06] MED LIST changes: +DEXA6TAB PO
[2023-05-06 13:11] LABS: HEMOGLOBIN A1c 6.4 % (4.0-6.0)
== END ==
LOC: M LAB 11:54
PROVIDERS: ATTEND Nurse Practitioner Family
DX: R73.03 Prediabetes (principal)

== ENCOUNTER → 2023-05-15 | Outpatient (CLI) | payer OTHER ==
[~2023-05-15] MED LIST changes: +E-Z-GAS II EFFERVESCENT PACKET (SODIUM BICARB./CITRIC ACID/SIMETHICONE) As Ordered ONE; +E-Z-HD 98% w/w 340GM SUSP BTL As Ordered ONE; +E-Z-PAQUE 96% w/w SUSP 176GM BTL As Ordered ONE
== END ==
LOC: M RAD 10:23
PROVIDERS: ATTEND Nurse Practitioner Family
DX: R13.10 Dysphagia, unspecified (principal)

== ENCOUNTER → 2023-11-10 | Outpatient (CLI) | payer OTHER ==
[~2023-11-10] MED LIST changes: -E-Z-GAS II EFFERVESCENT PACKET (SODIUM BICARB./CITRIC ACID/SIMETHICONE) As Ordered ONE; -E-Z-HD 98% w/w 340GM SUSP BTL As Ordered ONE; -E-Z-PAQUE 96% w/w SUSP 176GM BTL As Ordered ONE
[2023-11-10 11:43] LABS: ALBUMIN 3.7 G/DL (3.2-5.2); ALKALINE PHOSPHATASE 75 U/L (46-116); ALT/SGPT 30 U/L (7.0-40); AST/SGOT 23 U/L (<34); BILIRUBIN,TOTAL 1.3 MG/DL (0.3-1.2); BLOOD UREA NITROGEN 19 MG/DL (9-23); CALCIUM LEVEL 8.9 MG/DL (8.5-10.1); CARBON DIOXIDE LEVEL 29 MMOL/L (20-31); CHLORIDE LEVEL 108 MMOL/L (98-107); CHOLESTEROL LEVEL 119 MG/DL (<200); CHOLESTEROL RISK RATIO 2.32 (<5); CREATININE FOR GFR 0.73 MG/DL (0.70-1.30); GLOMERULAR FILTRATION RATE > 60.0 (>56); GLUCOSE, FASTING 105 MG/DL (60-100); HDL CHOLESTEROL 51.1 MG/DL (>40); LDL CHOLESTEROL 53.5 MG/DL (<100); NON-HDL-C 67.9 MG/DL; POTASSIUM SERUM 4.2 MMOL/L (3.5-5.1); SODIUM LEVEL 141 MMOL/L (136-145); TOTAL PROTEIN 6.4 G/DL (5.7-8.2); TRIGLYCERIDES LEVEL 72 MG/DL (<150)
[2023-11-10 12:07] LABS: CREATININE, URINE 254.1 MG/DL; MAU/CREAT RATIO 3.9 MCG/MG (0.0-30.0)
== END ==
LOC: M LAB 10:26
PROVIDERS: ATTEND Nurse Practitioner Family
DX: I10 Essential (primary) hypertension (principal); R73.03 Prediabetes; I25.10 Atherosclerotic heart disease of native coronary artery without angina pectoris; E55.9 Vitamin D deficiency, unspecified

== ENCOUNTER 2023-12-05 14:54 | Emergency (ER) | payer OTHER ==
[~2023-12-05] VITALS: Ht 172.7 cm; Wt 82.9 kg
[2023-12-05 16:01] LABS: BASO % 0.6 % (0.0-1.0); EOS # 0.2 10^3/uL (0.0-0.5); EOS % 2.8 % (0.0-3.0); HEMATOCRIT 42.5 % (42.0-52.0); HEMOGLOBIN 14.5 g/dl (13.5-17.5); LYMPH # 1.2 10^3/uL (1.5-5.0); LYMPH % 19.9 % (24.0-44.0); MEAN CORPUSCULAR HEMOGLOBIN 30.5 pg (27.0-33.0); MEAN CORPUSCULAR HGB CONC 34.1 g/dl (32.0-36.5); MEAN CORPUSCULAR VOLUME 89.5 fl (80.0-96.0); MONO # 0.6 10^3/uL (0.0-0.8); MONO % 9.7 % (2.0-8.0); NEUTROPHILS # 4.1 10^3/uL (1.5-8.5); NEUTROPHILS % 66.7 % (36.0-66.0); PLATELET COUNT, AUTOMATED 216 10^3/uL (150-450); RED BLOOD COUNT 4.75 10^6/uL (4.30-6.10); WHITE BLOOD COUNT 6.2 10^3/uL (4.0-10.0)
[2023-12-05 16:14] LABS: INR 1.3; PARTIAL THROMBOPLASTIN TIME 32.5 SECONDS (24.8-34.2); PROTHROMBIN TIME 15.8 SECONDS (12.5-14.5)
[2023-12-05 16:23] LABS: LIPASE 41 U/L (12-53)
[2023-12-05 16:25] LABS: ALBUMIN 4.1 G/DL (3.2-5.2); ALKALINE PHOSPHATASE 81 U/L (46-116); ALT/SGPT 26 U/L (7.0-40); AST/SGOT 24 U/L (<34); BILIRUBIN,DIRECT 0.8 MG/DL (<0.4); BILIRUBIN,TOTAL 2.2 MG/DL (0.3-1.2); BLOOD UREA NITROGEN 14 MG/DL (9-23); CALCIUM LEVEL 9.1 MG/DL (8.3-10.6); CARBON DIOXIDE LEVEL 27 MMOL/L (20-31); CHLORIDE LEVEL 106 MMOL/L (98-107); CK-MB VALUE MASS 1.5 NG/ML (<3.6); CREATININE FOR GFR 0.68 MG/DL (0.70-1.30); GLOMERULAR FILTRATION RATE > 60.0 (>49); GLUCOSE, FASTING 91 MG/DL (74-106); POTASSIUM SERUM 4.1 MMOL/L (3.5-5.1); SODIUM LEVEL 139 MMOL/L (136-145); TOTAL PROTEIN 6.8 G/DL (5.7-8.2)
[2023-12-05 16:26] LABS: FREE T4 1.24 NG/DL (0.89-1.76)
[2023-12-05 16:27] LABS: THYROID STIMULATING HORMONE 1.442 uIU/ML (0.55-4.78)
[2023-12-05 16:28] LABS: CPK CREATINE PHOSPHOKINASE 179 U/L (46-171); MB/CK RELATIVE INDEX 0.83 (< OR =4)
[2023-12-05 16:39] LABS: RSV AMPLIFICATION NEGATIVE (NEGATIVE)
[2023-12-05] MEDS ORDERED: ISOVUE-370 76% 100ML VIAL As Ordered ONE (16:46)
[2023-12-05 17:25] LABS: CK-MB VALUE MASS 1.3 NG/ML (<3.6)
[2023-12-05 17:28] LABS: MB/CK RELATIVE INDEX 0.82 (< OR =4)
[2023-12-05 18:11] VITALS: BP 128/69; TEMP 97.8; O2SAT 100
[2023-12-05] MEDS ORDERED: CETI-24 PO (20:44)
[2023-12-05] MEDS ORDERED: ADDE1TAB14 PO (20:44)
[2023-12-05] MEDS ORDERED: MULT-6 PO (20:44)
[2023-12-05] MEDS ORDERED: HOME MED LIST COMPLETE! XX SCH (20:45)
== END 2023-12-05 18:10 | disposition home or self-care (01) ==
LOC: M ED 14:54
DX: R07.9 Chest pain, unspecified (principal); R10.9 Unspecified abdominal pain; I11.9 Hypertensive heart disease without heart failure; I25.10 Atherosclerotic heart disease of native coronary artery without angina pectoris; I25.2 Old myocardial infarction; Z95.5 Presence of coronary angioplasty implant and graft; G47.33 Obstructive sleep apnea (adult) (pediatric); Z87.891 Personal history of nicotine dependence; Z79.899 Other long term (current) drug therapy; Z79.82 Long term (current) use of aspirin; Z79.84 Long term (current) use of oral hypoglycemic drugs
CPT/HCPCS: 36415; 71045; 71275; 74177; 80047; 80048; 80076; 82550; 82553; 83690; 83880; 84439; 84443; 84484; 85025; 85610; 85730; 87631; 93005; 93041; 94760; 99285; Q9967

== ENCOUNTER 2024-04-09 05:13 | Emergency (ER) | payer OTHER ==
[~2024-04-09] VITALS: Ht 172.7 cm; Wt 81.6 kg
[~2024-04-09 05:13] MED LIST changes: +ADDE1TAB14 PO; +CETI-24 PO; +MULT-6 PO; -POTA10CA60 PO; +POTA10CA70 PO
[2024-04-09 06:54] LABS: BASO # 0.1 10^3/uL (0.0-0.2); BASO % 0.9 % (0.0-1.0); EOS # 0.2 10^3/uL (0.0-0.5); HEMATOCRIT 46.5 % (42.0-52.0); HEMOGLOBIN 15.6 g/dl (13.5-17.5); LYMPH # 1.7 10^3/uL (1.5-5.0); LYMPH % 25.1 % (24.0-44.0); MEAN CORPUSCULAR HEMOGLOBIN 30.3 pg (27.0-33.0); MEAN CORPUSCULAR HGB CONC 33.5 g/dl (32.0-36.5); MEAN CORPUSCULAR VOLUME 90.3 fl (80.0-96.0); MONO # 0.6 10^3/uL (0.0-0.8); MONO % 9.3 % (2.0-8.0); NEUTROPHILS # 4.1 10^3/uL (1.5-8.5); NEUTROPHILS % 61.3 % (36.0-66.0); PLATELET COUNT, AUTOMATED 234 10^3/uL (150-450); RED BLOOD COUNT 5.15 10^6/uL (4.30-6.10); WHITE BLOOD COUNT 6.7 10^3/uL (4.0-10.0)
[2024-04-09 07:21] LABS: CK-MB VALUE MASS 1.1 NG/ML (<3.6)
[2024-04-09 07:23] LABS: BLOOD UREA NITROGEN 13 MG/DL (9-23); CALCIUM LEVEL 9.6 MG/DL (8.3-10.6); CARBON DIOXIDE LEVEL 30 MMOL/L (20-31); CHLORIDE LEVEL 106 MMOL/L (98-107); CREATININE FOR GFR 0.77 MG/DL (0.70-1.30); GLOMERULAR FILTRATION RATE > 60.0 (>49); GLUCOSE, FASTING 118 MG/DL (74-106); SODIUM LEVEL 142 MMOL/L (136-145)
[2024-04-09 07:24] LABS: CPK CREATINE PHOSPHOKINASE 159 U/L (46-171); MB/CK RELATIVE INDEX 0.69 (< OR =4)
[2024-04-09] MEDS: KETOROLAC 60MG 2ML VIAL IM ONE (08:34)
[2024-04-09] MEDS: GABAPENTIN 300 MG CAP PO ONE (08:34)
[2024-04-09] MEDS: methocarbamoL 500 MG TAB PO ONE (08:34)
[2024-04-09] MEDS: PERCOCET 5MG/325MG TAB PO ONE (10:17)
[2024-04-09] MEDS ORDERED: PERC5TAB12 PO (11:21)
[2024-04-09 11:37] VITALS: BP 143/68; TEMP 96.9; O2SAT 99
[2024-04-09] MEDS ORDERED: ALEV220T22 PO (11:47)
[2024-04-09] MEDS ORDERED: MOVE1TAB PO (11:47)
[2024-04-09] MEDS ORDERED: HOME MED LIST COMPLETE! XX SCH (11:50)
== END 2024-04-09 12:05 | disposition home or self-care (01) ==
LOC: M ED 05:13
DX: M54.12 Radiculopathy, cervical region (principal); I45.10 Unspecified right bundle-branch block; R00.1 Bradycardia, unspecified; I25.119 Atherosclerotic heart disease of native coronary artery with unspecified angina pectoris; E11.9 Type 2 diabetes mellitus without complications; G47.33 Obstructive sleep apnea (adult) (pediatric); Z87.891 Personal history of nicotine dependence; Z79.1 Long term (current) use of non-steroidal anti-inflammatories (NSAID); Z79.810 Long term (current) use of selective estrogen receptor modulators (SERMs); Z79.899 Other long term (current) drug therapy
CPT/HCPCS: 71045; 73030; 80048; 82550; 82553; 83735; 84484; 85025; 93005; 96372; 99284; J1885

== ENCOUNTER 2024-04-26 14:00 | Emergency (ER) | payer OTHER ==
[~2024-04-26] VITALS: Ht 170.2 cm; Wt 81.8 kg
[~2024-04-26 14:00] MED LIST changes: +ALEV220T22 PO; +MOVE1TAB PO; +PERC5TAB12 PO
[2024-04-26 16:01] VITALS: TEMP 98.5
[2024-04-26] MEDS: NITROGLYCERIN 0.4MG SUBL TABLET SL PRN (16:25)
[2024-04-26] MEDS: NS 1,000 ML IV SCH (16:26)
[2024-04-26 16:27] LABS: BASO % 0.6 % (0.0-1.0); EOS # 0.1 10^3/uL (0.0-0.5); EOS % 1.9 % (0.0-3.0); HEMATOCRIT 44.9 % (42.0-52.0); HEMOGLOBIN 15.4 g/dl (13.5-17.5); LYMPH # 1.2 10^3/uL (1.5-5.0); LYMPH % 23.7 % (24.0-44.0); MEAN CORPUSCULAR HEMOGLOBIN 31.1 pg (27.0-33.0); MEAN CORPUSCULAR HGB CONC 34.3 g/dl (32.0-36.5); MEAN CORPUSCULAR VOLUME 90.7 fl (80.0-96.0); MONO # 0.5 10^3/uL (0.0-0.8); MONO % 10.2 % (2.0-8.0); NEUTROPHILS # 3.3 10^3/uL (1.5-8.5); NEUTROPHILS % 63.4 % (36.0-66.0); PLATELET COUNT, AUTOMATED 209 10^3/uL (150-450); RED BLOOD COUNT 4.95 10^6/uL (4.30-6.10); WHITE BLOOD COUNT 5.2 10^3/uL (4.0-10.0)
[2024-04-26 16:39] LABS: INR 1.24; PARTIAL THROMBOPLASTIN TIME 28.6 SECONDS (24.8-34.2); PROTHROMBIN TIME 15.2 SECONDS (12.5-14.5)
[2024-04-26 16:41] VITALS: BP 132/63
[2024-04-26 16:50] LABS: LIPASE 50 U/L (12-53)
[2024-04-26 16:51] LABS: C REACTIVE PROTEIN QUANTITATIV < 0.40 MG/DL (<1.0)
[2024-04-26 16:52] LABS: ALBUMIN 4.2 G/DL (3.2-5.2); ALKALINE PHOSPHATASE 87 U/L (46-116); ALT/SGPT 27 U/L (7.0-40); AST/SGOT 24 U/L (<34); BILIRUBIN,DIRECT 0.7 MG/DL (<0.4); BILIRUBIN,TOTAL 2.3 MG/DL (0.3-1.2); BLOOD UREA NITROGEN 14 MG/DL (9-23); CALCIUM LEVEL 9.4 MG/DL (8.3-10.6); CARBON DIOXIDE LEVEL 29 MMOL/L (20-31); CHLORIDE LEVEL 108 MMOL/L (98-107); CREATININE FOR GFR 0.81 MG/DL (0.70-1.30); GLOMERULAR FILTRATION RATE > 60.0 (>49); GLUCOSE, FASTING 127 MG/DL (74-106); POTASSIUM SERUM 4.2 MMOL/L (3.5-5.1); SODIUM LEVEL 140 MMOL/L (136-145); TOTAL PROTEIN 7.1 G/DL (5.7-8.2)
[2024-04-26 16:53] LABS: CK-MB VALUE MASS < 1.0 NG/ML (<3.6)
[2024-04-26 16:57] LABS: FREE T4 1.37 NG/DL (0.89-1.76); THYROID STIMULATING HORMONE 1.151 uIU/ML (0.55-4.78)
[2024-04-26 16:58] LABS: CPK CREATINE PHOSPHOKINASE 229 U/L (46-171); MB/CK RELATIVE INDEX 0.43 (< OR =4)
[2024-04-26] MEDS ORDERED: ISOVUE-370 76% 100ML VIAL As Ordered ONE (17:18)
[2024-04-26 18:30] VITALS: BP 127/70; O2SAT 97
[2024-04-26 19:37] LABS: CK-MB VALUE MASS < 1.0 NG/ML (<3.6)
[2024-04-26 19:42] LABS: CPK CREATINE PHOSPHOKINASE 184 U/L (46-171); MB/CK RELATIVE INDEX 0.54 (< OR =4)
[2024-04-26] MEDS ORDERED: PROT1TAB2 PO (20:25)
== END 2024-04-26 20:38 | disposition home or self-care (01) ==
LOC: M ED 14:00
DX: R07.89 Other chest pain (principal); I25.10 Atherosclerotic heart disease of native coronary artery without angina pectoris; I10 Essential (primary) hypertension; M48.02 Spinal stenosis, cervical region; Z95.1 Presence of aortocoronary bypass graft; Z79.82 Long term (current) use of aspirin; Z79.899 Other long term (current) drug therapy
CPT/HCPCS: 36415; 71275; 76705; 80048; 80076; 82550; 82553; 83690; 83880; 84439; 84443; 84484; 85025; 85610; 85730; 86140; 93005; 93041; 94760; 96360; 96361; 99285; Q9967

== ENCOUNTER → 2024-05-10 | Outpatient (CLI) | payer OTHER ==
[~2024-05-10] MED LIST changes: +PROT1TAB2 PO
== END ==
LOC: M LAB 10:44
PROVIDERS: ATTEND Nurse Practitioner Family
DX: R73.03 Prediabetes (principal)

== ENCOUNTER → 2024-11-09 | Outpatient (CLI) | payer OTHER ==
[~2024-11-09] MED LIST changes: +GABA-1172 PO; -GABA-282 PO
[2024-11-09 11:46] LABS: BASO % 0.6 % (0.0-1.0); EOS # 0.2 10^3/uL (0.0-0.5); EOS % 2.7 % (0.0-3.0); HEMATOCRIT 46.7 % (42.0-52.0); HEMOGLOBIN 15.5 g/dl (13.5-17.5); LYMPH # 1.7 10^3/uL (1.5-5.0); LYMPH % 24.8 % (24.0-44.0); MEAN CORPUSCULAR HEMOGLOBIN 31.1 pg (27.0-33.0); MEAN CORPUSCULAR HGB CONC 33.2 g/dl (32.0-36.5); MEAN CORPUSCULAR VOLUME 93.6 fl (80.0-96.0); MONO # 0.6 10^3/uL (0.0-0.8); MONO % 8.9 % (2.0-8.0); NEUTROPHILS # 4.2 10^3/uL (1.5-8.5); NEUTROPHILS % 62.7 % (36.0-66.0); PLATELET COUNT, AUTOMATED 238 10^3/uL (150-450); RED BLOOD COUNT 4.99 10^6/uL (4.30-6.10); WHITE BLOOD COUNT 6.7 10^3/uL (4.0-10.0)
[2024-11-09 12:31] LABS: ALKALINE PHOSPHATASE 93 U/L (40-129); ALT/SGPT 26 U/L (7.0-40); AST/SGOT 22 U/L (<34); BILIRUBIN,TOTAL 1.8 MG/DL (0.3-1.2); BLOOD UREA NITROGEN 13 MG/DL (9-23); CALCIUM LEVEL 9.5 MG/DL (8.3-10.6); CARBON DIOXIDE LEVEL 30 MMOL/L (20-31); CHLORIDE LEVEL 106 MMOL/L (98-107); CHOLESTEROL LEVEL 141 MG/DL (<200); CHOLESTEROL RISK RATIO 2.39 (<5); CREATININE FOR GFR 0.76 MG/DL (0.70-1.30); GLOMERULAR FILTRATION RATE > 60.0 (>49); GLUCOSE, FASTING 115 MG/DL (74-106); HDL CHOLESTEROL 58.9 MG/DL (>40); LDL CHOLESTEROL 63.5 MG/DL (<100); NON-HDL-C 82.1 MG/DL; POTASSIUM SERUM 4.1 MMOL/L (3.5-5.1); SODIUM LEVEL 143 MMOL/L (136-145); TOTAL PROTEIN 7.5 G/DL (5.7-8.2); TRIGLYCERIDES LEVEL 93 MG/DL (<150)
[2024-11-09 12:35] LABS: TOTAL 25(OH) VITAMIN D 38.2 NG/ML (20.0-100.0)
[2024-11-09 13:13] LABS: HEMOGLOBIN A1c 6.2 % (4.0-6.0)
== END ==
LOC: M WUC 10:27
PROVIDERS: ATTEND Nurse Practitioner Family
DX: I10 Essential (primary) hypertension (principal); R73.03 Prediabetes; E78.2 Mixed hyperlipidemia; E55.9 Vitamin D deficiency, unspecified

== ENCOUNTER 2024-11-22 14:55 | Emergency (ER) | payer OTHER ==
[~2024-11-22] VITALS: Ht 170.2 cm; Wt 83.6 kg
[2024-11-22 15:45] LABS: BASO % 0.6 % (0.0-1.0); EOS # 0.1 10^3/uL (0.0-0.5); EOS % 1.5 % (0.0-3.0); HEMATOCRIT 44.6 % (42.0-52.0); HEMOGLOBIN 14.8 g/dl (13.5-17.5); LYMPH # 1.3 10^3/uL (1.5-5.0); LYMPH % 19.3 % (24.0-44.0); MEAN CORPUSCULAR HEMOGLOBIN 30.7 pg (27.0-33.0); MEAN CORPUSCULAR HGB CONC 33.2 g/dl (32.0-36.5); MEAN CORPUSCULAR VOLUME 92.5 fl (80.0-96.0); MONO # 0.6 10^3/uL (0.0-0.8); MONO % 9.1 % (2.0-8.0); NEUTROPHILS # 4.5 10^3/uL (1.5-8.5); NEUTROPHILS % 69.2 % (36.0-66.0); PLATELET COUNT, AUTOMATED 220 10^3/uL (150-450); RED BLOOD COUNT 4.82 10^6/uL (4.30-6.10); WHITE BLOOD COUNT 6.5 10^3/uL (4.0-10.0)
[2024-11-22 16:07] LABS: LIPASE 47 U/L (12-53)
[2024-11-22 16:10] LABS: ALBUMIN 3.8 G/DL (3.2-5.2); ALKALINE PHOSPHATASE 86 U/L (40-129); ALT/SGPT 27 U/L (7.0-40); AST/SGOT 23 U/L (<34); BILIRUBIN,DIRECT 0.6 MG/DL (<0.4); BILIRUBIN,TOTAL 1.7 MG/DL (0.3-1.2); BLOOD UREA NITROGEN 15 MG/DL (9-23); CARBON DIOXIDE LEVEL 27 MMOL/L (20-31); CHLORIDE LEVEL 107 MMOL/L (98-107); CK-MB VALUE MASS < 1.0 NG/ML (<3.6); CPK CREATINE PHOSPHOKINASE 144 U/L (46-171); CREATININE FOR GFR 0.72 MG/DL (0.70-1.30); GLOMERULAR FILTRATION RATE > 60.0 (>49); GLUCOSE, FASTING 121 MG/DL (74-106); POTASSIUM SERUM 4.1 MMOL/L (3.5-5.1); SODIUM LEVEL 141 MMOL/L (136-145); TOTAL PROTEIN 6.7 G/DL (5.7-8.2)
[2024-11-22 16:11] LABS: CK-MB VALUE MASS < 1.0 NG/ML (<3.6); CPK CREATINE PHOSPHOKINASE 143 U/L (46-171); MB/CK RELATIVE INDEX 0.69 (< OR =4)
[2024-11-22 16:14] LABS: THYROID STIMULATING HORMONE 0.917 uIU/ML (0.55-4.78)
[2024-11-22 16:15] LABS: FREE T4 1.42 NG/DL (0.89-1.76)
[2024-11-22] MEDS ORDERED: NITROGLYCERIN 0.4MG SUBL TABLET SL PRN (16:15)
[2024-11-22] MEDS: ASPIRIN 81MG CHEW TABLET PO ONE (16:18)
[2024-11-22] MEDS ORDERED: ISOVUE-370 76% 100ML VIAL As Ordered ONE (16:25)
[2024-11-22 17:12] LABS: CK-MB VALUE MASS 1.2 NG/ML (<3.6)
[2024-11-22 17:13] LABS: CPK CREATINE PHOSPHOKINASE 134 U/L (46-171); MB/CK RELATIVE INDEX 0.89 (< OR =4)
[2024-11-22 19:45] VITALS: BP 123/67; O2SAT 97
[2024-11-22 20:03] VITALS: TEMP 97.1
== END 2024-11-22 20:09 | disposition home or self-care (01) ==
LOC: M ED 14:55
DX: R07.9 Chest pain, unspecified (principal); I25.10 Atherosclerotic heart disease of native coronary artery without angina pectoris; I25.2 Old myocardial infarction; G47.30 Sleep apnea, unspecified; F90.9 Attention-deficit hyperactivity disorder, unspecified type; Z95.1 Presence of aortocoronary bypass graft; F17.200 Nicotine dependence, unspecified, uncomplicated; Z79.82 Long term (current) use of aspirin; Z79.899 Other long term (current) drug therapy
CPT/HCPCS: 71046; 71275; 80048; 80076; 82550; 82553; 83690; 83880; 84439; 84443; 84484; 85025; 85730; 93005; 93041; 94760; 99285; Q9967

== ENCOUNTER → 2024-12-28 | Outpatient (CLI) | payer OTHER | LOC: M PLAIMG 10:19 | PROVIDERS: ATTEND Nurse Practitioner | DX: Z98.1 Arthrodesis status (principal); M54.2 Cervicalgia ==

== ENCOUNTER 2025-05-06 14:01 | Observation (INO) | payer OTHER ==
[~2025-05-06] VITALS: Ht 170.2 cm; Wt 88.9 kg
[2025-05-06 14:28] LABS: BASO # 0.0 10^3/uL (0.0-0.2); BASO % 0.5 % (0.0-1.0); EOS # 0.2 10^3/uL (0.0-0.5); EOS % 3.7 % (0.0-3.0); LYMPH # 1.3 10^3/uL (1.5-5.0); LYMPH % 22.0 % (24.0-44.0); MONO # 0.6 10^3/uL (0.0-0.8); MONO % 10.5 % (2.0-8.0); NEUTROPHILS # 3.8 10^3/uL (1.5-8.5); NEUTROPHILS % 63.0 % (36.0-66.0); PLATELET COUNT, AUTOMATED 191 10^3/uL (150-450)
[2025-05-06 15:02] LABS: CK-MB VALUE MASS 3.3 NG/ML (<3.6)
[2025-05-06 15:03] LABS: CALCIUM LEVEL 9.2 MG/DL (8.3-10.6); CARBON DIOXIDE LEVEL 26.0 MMOL/L (20-31); CHLORIDE LEVEL 107.0 MMOL/L (98-107); CREATININE FOR GFR 1.0 MG/DL (0.70-1.30); GLOMERULAR FILTRATION RATE 85.6 (>49); POTASSIUM SERUM 4.1 MMOL/L (3.5-5.1); SODIUM LEVEL 143.0 MMOL/L (136-145)
[2025-05-06 15:06] LABS: CPK CREATINE PHOSPHOKINASE 291.0 U/L (46-171); MB/CK RELATIVE INDEX 1.13 (< OR =4)
[2025-05-06] MEDS: MORPHINE 4 MG/ML 1 ML VIAL IV ONE (15:14)
[2025-05-06 16:03] LABS: CK-MB VALUE MASS 3.1 NG/ML (<3.6)
[2025-05-06] MEDS ORDERED: ISOVUE-370 76% 100 ML VIAL As Ordered ONE (16:06)
[2025-05-06 16:22] LABS: CPK CREATINE PHOSPHOKINASE 277.0 U/L (46-171); MB/CK RELATIVE INDEX 1.11 (< OR =4)
[2025-05-06 18:12] LABS: CK-MB VALUE MASS 2.9 NG/ML (<3.6)
[2025-05-06 18:18] LABS: CPK CREATINE PHOSPHOKINASE 286.0 U/L (46-171); MB/CK RELATIVE INDEX 1.01 (< OR =4)
[2025-05-06] MEDS: MORPHINE 4 MG/ML 1 ML VIAL IV PRN (19:49)
[2025-05-06] MEDS ORDERED: MOM 30 ML SUSPENSION UDC PO PRN (20:30)
[2025-05-06] MEDS ORDERED: ACETAMINOPHEN 325 MG TAB PO PRN (20:30)
[2025-05-06] MEDS: DOCUSATE SODIUM 100 MG CAPSULE PO SCH (21:00)
[2025-05-06 21:50] VITALS: BP 146/81; TEMP 97.2; O2SAT 99
[2025-05-06] MEDS: PANTOPRAZOLE 40MG VIAL IV SCH (21:58)
[2025-05-06 23:47] LABS: KETONE, URINE AUTO RFX NEGATIVE (NEGATIVE); LEUKOCYTE ESTERASE UR AUTO RFX NEGATIVE (NEGATIVE); NITRITE, URINE AUTO RFX NEGATIVE (NEGATIVE); RBC, URINE AUTO RFX 1 /HPF (0-3); SQUAM EPITHELIAL CELL UR AURFX 0 /HPF (0-6); WBC, URINE AUTO RFX 1 /HPF (0-3)
[2025-05-07] MEDS ORDERED: PANT40TA29 PO (00:18)
[2025-05-07] MEDS ORDERED: ASPI81CH33 PO (00:18)
[2025-05-07] MEDS ORDERED: HOME MED LIST COMPLETE! XX SCH (00:20)
[2025-05-07] MEDS ORDERED: ASPIRIN 81 MG CHEWABLE TABLET PO PRN (02:40)
[2025-05-07] MEDS ORDERED: GABAPENTIN 300 MG CAP PO PRN (02:40)
[2025-05-07] MEDS ORDERED: NITROGLYCERIN 0.4 MG SUBL TABLET SL PRN (02:55)
[2025-05-07 03:42] VITALS: BP 108/61; TEMP 97.7; O2SAT 98
[2025-05-07 06:21] LABS: BASO # 0.1 10^3/uL (0.0-0.2); BASO % 0.8 % (0.0-1.0); EOS # 0.4 10^3/uL (0.0-0.5); EOS % 6.3 % (0.0-3.0); LYMPH # 1.8 10^3/uL (1.5-5.0); LYMPH % 29.8 % (24.0-44.0); MONO # 0.6 10^3/uL (0.0-0.8); MONO % 10.5 % (2.0-8.0); NEUTROPHILS # 3.1 10^3/uL (1.5-8.5); NEUTROPHILS % 52.3 % (36.0-66.0); PLATELET COUNT, AUTOMATED 189 10^3/uL (150-450)
[2025-05-07 06:44] LABS: CHOLESTEROL LEVEL 98.0 MG/DL (<200); CHOLESTEROL RISK RATIO 2.35 (<5); LDL CHOLESTEROL 34.9 MG/DL (<100); NON-HDL-C 56.3 MG/DL; TRIGLYCERIDES LEVEL 107.0 MG/DL (<150)
[2025-05-07 06:45] LABS: ALT/SGPT 26.0 U/L (7.0-40); AST/SGOT 31.0 U/L (<34); CALCIUM LEVEL 8.7 MG/DL (8.3-10.6); CARBON DIOXIDE LEVEL 29.0 MMOL/L (20-31); CHLORIDE LEVEL 107.0 MMOL/L (98-107); CREATININE FOR GFR 1.15 MG/DL (0.70-1.30); GLOMERULAR FILTRATION RATE 72.4 (>49); MAGNESIUM LEVEL 1.8 MG/DL (1.8-2.4); POTASSIUM SERUM 4.2 MMOL/L (3.5-5.1); SODIUM LEVEL 144.0 MMOL/L (136-145)
[2025-05-07 06:52] LABS: ESTIMATED AVERAGE GLUCOSE 137.0 MG/DL (60-110)
[2025-05-07] MEDS: CETIRIZINE 10 MG TAB PO SCH (09:09)
[2025-05-07] MEDS: ENOXAPARIN 40 MG/0.4 ML SYRINGE (J1650 PER 10MG) SC SCH (09:09)
[2025-05-07] MEDS: ASPIRIN 81 MG ENTERIC TABLET PO SCH (09:09)
[2025-05-07] MEDS: ATORVASTATIN 20 MG TAB PO SCH (09:10)
[2025-05-07 09:12] VITALS: BP 132/74
[2025-05-07] MEDS: METOPROLOL SUCC. 25 MG *XL* TAB PO SCH (09:12)
[2025-05-07 12:49] VITALS: BP 144/75; TEMP 97.2; O2SAT 98
[2025-05-07] MEDS ORDERED: NITR0.3S4 SL (16:58)
== END 2025-05-07 17:08 | disposition home or self-care (01) ==
LOC: EDBD 14:01 → M ED 14:01 → M ED INP 14:02 → M MSPAV 21:36
PROVIDERS: ADMIT Student in an Organized Health Care Education/Training Program; ATTEND Student in an Organized Health Care Education/Training Program
DX: R07.89 Other chest pain (principal); I25.10 Atherosclerotic heart disease of native coronary artery without angina pectoris; Z95.1 Presence of aortocoronary bypass graft; J30.2 Other seasonal allergic rhinitis; G47.33 Obstructive sleep apnea (adult) (pediatric); Z79.82 Long term (current) use of aspirin; Z79.899 Other long term (current) drug therapy
CPT/HCPCS: 36415; 70544; 70547; 70551; 71045; 71275; 80048; 80053; 80061; 81001; 82550; 82553; 83036; 83735; 83880; 84443; 84484; 85025; 93005; 93041; 93306; 94760; 96372; 96374; 96375; 96376; 99285; J1650; J2470; Q9967

== ENCOUNTER → 2025-05-09 | Outpatient (CLI) | payer OTHER ==
[~2025-05-09] MED LIST changes: +ASPI81CH33 PO; +NITR0.3S4 SL; +PANT40TA29 PO
[2025-05-09 10:54] LABS: ESTIMATED AVERAGE GLUCOSE 143.0 MG/DL (60-110)
== END ==
LOC: M LAB 09:14
PROVIDERS: ATTEND Nurse Practitioner Family
DX: R73.03 Prediabetes (principal)

== ENCOUNTER → 2025-06-10 | Outpatient (CLI) | payer OTHER ==
[2025-06-10 18:48] LABS: CALCIUM LEVEL 9.4 MG/DL (8.3-10.6); CARBON DIOXIDE LEVEL 29.0 MMOL/L (20-31); CHLORIDE LEVEL 106.0 MMOL/L (98-107); CREATININE FOR GFR 0.99 MG/DL (0.70-1.30); GLOMERULAR FILTRATION RATE 86.7 (>49); POTASSIUM SERUM 4.3 MMOL/L (3.5-5.1); SODIUM LEVEL 145.0 MMOL/L (136-145)
== END ==
LOC: M LAB 17:08
PROVIDERS: ATTEND Nurse Practitioner Family
DX: I25.708 Atherosclerosis of coronary artery bypass graft(s), unspecified, with other forms of angina pectoris (principal)